=== PATIENT | female | born 1935 | race Caucasian/White ===

== ENCOUNTER 2016-05-17 14:24 | Emergency (ER) | payer MEDICARE, MEDICAID ==
[2016-05-17] MEDS ORDERED: MORPHINE 2 MG/ML SYRINGE IVP STA (15:22)
[2016-05-17] MEDS ORDERED: MORPHINE 2 MG/ML SYRINGE ONE (16:24)
== END 2016-05-17 16:46 | disposition home or self-care (01) ==
DX: K57.32 Diverticulitis of large intestine without perforation or abscess without bleeding (principal); E83.52 Hypercalcemia; K21.9 Gastro-esophageal reflux disease without esophagitis; K43.9 Ventral hernia without obstruction or gangrene; Z90.49 Acquired absence of other specified parts of digestive tract; I10 Essential (primary) hypertension; E11.9 Type 2 diabetes mellitus without complications; Z79.84 Long term (current) use of oral hypoglycemic drugs; Z86.73 Personal history of transient ischemic attack (TIA), and cerebral infarction without residual deficits; Z79.02 Long term (current) use of antithrombotics/antiplatelets

== ENCOUNTER 2016-07-01 13:05 | Outpatient (CLI) | payer MEDICARE, MEDICAID | END 2016-07-01 13:06 | disposition home or self-care (01) | DX: G47.30 Sleep apnea, unspecified (principal); G47.8 Other sleep disorders; G47.10 Hypersomnia, unspecified; R06.83 Snoring | CPT/HCPCS: 99203; G0463 ==

== ENCOUNTER 2016-07-26 21:54 | Outpatient (CLI) | payer MEDICARE, MEDICAID | END 2016-07-26 21:55 | disposition home or self-care (01) | LOC: SC 21:54 | PROVIDERS: ATTEND Internal Medicine Pulmonary Disease | DX: G47.33 Obstructive sleep apnea (adult) (pediatric) (principal); G47.61 Periodic limb movement disorder; Z68.30 Body mass index [BMI] 30.0-30.9, adult | CPT/HCPCS: 95810 ==

== ENCOUNTER 2016-08-06 13:30 | Outpatient (CLI) | payer MEDICARE, MEDICAID | END 2016-08-06 13:31 | disposition home or self-care (01) | DX: G47.33 Obstructive sleep apnea (adult) (pediatric) (principal) | CPT/HCPCS: 99213; G0463 ==

== ENCOUNTER 2016-08-20 13:48 | Emergency (ER) | payer MEDICARE, MEDICAID ==
--- NOTE | 2016-08-20 15:15 | ED Physician Documentation ---
PD HPI ABD PAIN - Stated complaint Stated Complaint: LOW ABD PX - Chief complaint Chief Complaint: Abd Pain - History obtained from History obtained from: Patient - History of Present Illness Timing - onset: Yesterday Timing - duration: Days (1-2) Timing - details: Gradual onset, Still present Quality: Cramping, Aching, Pain Location: LUQ, Suprapubic Radiation: No: Lower back, Left flank Improved by: No: Eating, BM Worsened by: No: Eating Associated symptoms: Nausea, Dysuria (frequency/urgency). No: Fever, Vomiting, Diarrhea Similar symptoms before: Diagnosis (diverticulitis once in recent past) Recently seen: Not recently seen Review of Systems Ten Systems: 10 systems reviewed and negative Constitutional: reports: Myalgias. denies: Fever, Chills Nose: denies: Rhinorrhea / runny nose, Congestion Throat: denies: Sore throat Cardiac: denies: Chest pain / pressure Respiratory: denies: Dyspnea, Cough GI: reports: Abdominal Pain, Nausea. denies: Abdominal Swelling, Vomiting, Constipation, Diarrhea : reports: Frequency, Incontinent (chronic). denies: Dysuria Skin: denies: Rash, Lesions Musculoskeletal: denies: Extremity swelling Neurologic: reports: Generalized weakness. 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 - Present Medications Home Medications: Ambulatory Orders Medication Instructions Recorded Confirmed Losartan [Cozaar] 50 mg PO ONCE 10/28/12 08/20/16 Metformin HCl 1,000 mg PO BID 10/28/12 08/20/16 Ranitidine HCl 300 mg PO BID 10/28/12 08/20/16 Simvastatin [Zocor] 10 mg PO QPM 10/28/12 08/20/16 Clopidogrel [Plavix] 75 mg PO ONCE 03/29/13 08/20/16 Cephalexin [Keflex] 500 mg PO TID #21 capsule 08/20/16 Hydrocodone/Acetaminophen [[place] 1 each PO Q6H PRN #20 tablet 08/20/16 5-325 Tablet] Ondansetron HCl [Zofran] 4 mg PO Q6H PRN #20 tablet 08/20/16 metroNIDAZOLE [Flagyl] 250 mg PO Q8H #21 tablet 08/20/16 - Allergies Allergies/Adverse Reactions: Allergies Allergy/AdvReac Type Severity Reaction Status Date / Time contrast dye Allergy Rash Uncoded 05/17/16 14:43 - Social History Does the pt smoke?: No Smoking Status: Never smoker Does the pt drink ETOH?: No Does the pt have substance abuse?: No - Family History Family history: reports: Non contributory - Immunizations Immunizations are current?: No Immunizations: TDAP >10years/unknown - POLST Patient has POLST: No PD ED PE NORMAL - Vitals Vital signs reviewed: Yes - General General: Alert and oriented X 3, No acute distress, Well developed/nourished - HEENT HEENT: Pharynx benign - Neck Neck: Supple, no meningeal sign, No adenopathy - Cardiac Cardiac: RRR, No murmur - Respiratory Respiratory: Clear bilaterally - Abdomen Abdomen: Normal bowel sounds, Soft, Non distended, No organomegaly, Other ( tender left lower abd without guarding nor rebound. Bowel sounds decreased. ) - Female Female : Deferred - Rectal Rectal: Deferred - Back Back: No CVA TTP - Derm Derm: Normal color, Warm and dry, No rash - Extremities Extremities: No tenderness to palpate, Normal ROM s pain, No calf tenderness / cord - Neuro Neuro: Alert and oriented X 3, No motor deficit, Normal speech Results - Vitals Vitals: Vital Signs - 24 hr 08/20/16 08/20/16 13:59 18:43 Temperature 36.6 C 36.8 C Heart Rate 92 70 Respiratory 18 20 Rate Blood Pressure 142/83 H 137/71 H O2 Saturation 98 100 Oxygen O2 Source Room air - Labs Labs: Laboratory Tests 08/20/16 08/20/16 08/20/16 15:14 16:10 17:01 WBC 8.9 RBC 3.72 L Hgb 11.8 L Hct 35.0 L MCV 94.3 MCH 31.8 H MCHC 33.7 RDW 12.9 Plt Count 266 MPV 7.3 L Neut # 5.8 Lymph # 1.8 [place] # 1.0 Eos # 0.2 Baso # 0.1 Absolute Nucleated RBC 0.00 Nucleated RBCs 0.0 Sodium Potassium Chloride Carbon Dioxide Anion Gap BUN Creatinine Estimated GFR (MDRD) Glucose POC Whole Bld Glucose 109 H Calcium Total Bilirubin AST ALT Alkaline Phosphatase Total Protein Albumin Globulin Albumin/Globulin Ratio Lipase Urine Color YELLOW Urine Clarity CLEAR Urine pH 7.5 Ur Specific [place] 1.010 Urine Protein NEGATIVE Urine Glucose (UA) NEGATIVE Urine Ketones NEGATIVE Urine Occult Blood NEGATIVE Urine Nitrite NEGATIVE Urine Bilirubin NEGATIVE Urine Urobilinogen 0.2 (NORMAL) Ur Leukocyte Esterase NEGATIVE Ur Microscopic Review NOT INDICATED Urine Culture Comments NOT INDICATED 08/20/16 17:01 WBC RBC Hgb Hct MCV MCH MCHC RDW Plt Count MPV Neut # Lymph # [place] # Eos # Baso # Absolute Nucleated RBC Nucleated RBCs Sodium 132 L Potassium 3.9 Chloride 100 L Carbon Dioxide 24 Anion Gap 8.0 BUN 14 Creatinine 0.9 Estimated GFR (MDRD) 60 L Glucose 146 H POC Whole Bld Glucose Calcium 10.5 H Total Bilirubin 0.6 AST 22 ALT 17 Alkaline Phosphatase 58 Total Protein 7.7 Albumin 4.4 Globulin 3.3 Albumin/Globulin Ratio 1.3 Lipase 28 Urine Color Urine Clarity Urine pH Ur Specific [place] Urine Protein Urine Glucose (UA) Urine Ketones Urine Occult Blood Urine Nitrite Urine Bilirubin Urine Urobilinogen Ur Leukocyte Esterase Ur Microscopic Review Urine Culture Comments - Rads (name of study) abd CT Radiology: Prelim report reviewed (diverticulosis, with some fat stranding and fluid left lower abd/pelvis. May represent early diverticulitis sigmoid area.), EMP read contemporaneously PD MEDICAL DECISION MAKING - ED course Complexity details: reviewed results (early diverticulitis without obvious complications. ), considered differential (likely diverticulitis, but feeling different than prior episode with some bladder symptoms. Will get scan. ), d/w patient, d/w family (daughter) Departure - Departure Disposition: 01 Home, Self Care Clinical Impression: Diverticulitis of gastrointestinal tract Abdominal pain Qualifiers: Abdominal location: lower abdomen, unspecified Qualified Code(s): R10.30 - Lower abdominal pain, unspecified Clinical Impression: (Ruled Out): Urinary tract infection Condition: Stable Record reviewed to determine appropriate education?: Yes Instructions: ED Diverticulitis Prescriptions: metroNIDAZOLE [Flagyl] 250 mg PO Q8H #21 tablet Cephalexin [Keflex] 500 mg PO TID #21 capsule Hydrocodone/Acetaminophen [[place] 5-325 Tablet] 1 each PO Q6H PRN #20 tablet PRN Reason: Pain Ondansetron HCl [Zofran] 4 mg PO Q6H PRN #20 tablet PRN Reason: Nausea / Vomiting Comments: Drink lots of fluids. Cephalexin and metronidazole as directed for infection. Zofran if needed for nausea. Hydrocodone as needed for pains. Recheck if not improved over the next few days. Discharge Date/Time: 08/20/16 18:50
[2016-08-20] MEDS ORDERED: ONDANSETRON 4 MG/2 ML VIAL IVP STA (15:44)
[2016-08-20] MEDS ORDERED: SODIUM CHLORIDE 0.9% 1,000 ML IV ONE ×2 (15:44→17:28)
[2016-08-20] MEDS ORDERED: HYDROmorphone 1 MG/ML SYRINGE IVP STA (15:44)
[2016-08-20 16:25] LABS: BILIRUBIN,URINE NEGATIVE (NEGATIVE); PH,URINE 7.5 PH (5.0-7.5); UA CHARGE (STRIP ONLY) YES; UR CULTURE IF IND NOT INDICATED
--- NOTE | 2016-08-20 17:02 | CT Preliminary Report ---
Exam: CT Abdomen/Pelvis W/O IMPRESSION: There is distal colonic diverticulosis. There is some left pelvic fat stranding and fluid. Findings m ay represent mild diverticulitis. SITE ID: [id number]
--- NOTE | 2016-08-20 17:04 | CT Report ---
EXAM: CT ABDOMEN AND PELVIS EXAM DATE: 08/20/2016 04:30 PM. CLINICAL HISTORY: Abdominal pain. COMPARISONS: 05/17/2016. TECHNIQUE: Routine axial helical CT imaging was performed through the abdomen and pelvis without IV c ontrast. Reconstructions: Coronal and sagittal. In accordance with CT protocol optimization, one or more of the following dose reduction techniques w ere utilized for this exam: automated exposure control, adjustment of mA and/or KV based on patient s ize, or use of iterative reconstructive technique. FINDINGS: Lung Bases: Unremarkable. Abdominal Organs: Noncontrast images of the abdominal organs are grossly unremarkable. Gallbladder/bile ducts: The gallbladder is surgically absent. No significant bile duct dilatation. Peritoneal Cavity: There is duodenal diverticulosis without evidence of diverticulitis. Small bowel d emonstrates no acute abnormalities. There is distal colonic diverticulosis. There is mild fat strandi ng within the posterior left pelvis. No intraperitoneal free air. No enlarged mesenteric or retroperi toneal lymph nodes. Pelvic Organs: Uterus and adnexa are unremarkable. Urinary bladder is decompressed. Vasculature: There are vascular calcifications. Other: There is a small fat-containing anterior abdominal wall hernia. IMPRESSION: There is distal colonic diverticulosis. There is some left pelvic fat stranding and fluid. Findings m ay represent mild diverticulitis. Referring Provider Line: [phone] SITE ID: [id number]
[2016-08-20 17:07] LABS: BASOPHILS # (AUTO) 0.1 10^3/uL (0.0-0.1); EOSINOPHILS # (AUTO) 0.2 10^3/uL (0.0-0.7); EOSINOPHILS % (AUTO) 2.5 %; HGB - HEMOGLOBIN 11.8 g/dL (12.0-16.0); LYMPHOCYTES # (AUTO) 1.8 10^3/uL (1.5-3.5); LYMPHOCYTES % (AUTO) 20.3 %; MEAN CORPUSCULAR HEMOGLOBIN 31.8 pg (27.0-31.0); MEAN CORPUSCULAR HGB CONC 33.7 g/dL (32.0-36.0); MEAN CORPUSCULAR VOLUME 94.3 fL (81.0-99.0); MEAN PLATELET VOLUME 7.3 fL (7.9-10.8); MONOCYTES % (AUTO) 11.4 %; NEUTROPHILS # (AUTO) 5.8 10^3/uL (1.5-6.6); NEUTROPHILS % (AUTO) 64.8 %; RED BLOOD COUNT 3.72 10^6/uL (4.20-5.40); RED CELL DISTRIBUTION WIDTH 12.9 % (12.0-15.0); UNCORRECTED WHITE BLOOD COUNT 8.9 x10^3/uL; WHITE BLOOD COUNT 8.9 x10^3/uL (4.8-10.8)
[2016-08-20 17:20] LABS: ALBUMIN/GLOBULIN RATIO 1.3 (1.0-2.2); BILIRUBIN,TOTAL 0.6 mg/dL (0.2-1.0); CALCIUM 10.5 mg/dL (8.5-10.3); CREATININE 0.9 mg/dL (0.4-1.0); POTASSIUM 3.9 mmol/L (3.5-5.0); TOTAL PROTEIN 7.7 g/dL (6.7-8.2)
[2016-08-20] MEDS ORDERED: HYDROmorphone 1 MG/ML SYRINGE ONE (17:27)
[2016-08-20] MEDS ORDERED: ONDANSETRON 4 MG/2 ML VIAL ONE (17:28)
[2016-08-20] MEDS ORDERED: cefTRIAXone 1 GM in SODIUM CHLORIDE 0.9% MINIBAG 100 ML IV STA (17:51)
[2016-08-20] MEDS ORDERED: metroNIDAZOLE 250 MG TABLET PO STA (17:51)
[2016-08-20] MEDS ORDERED: cefTRIAXone 1 GM VIAL ONE (17:56)
[2016-08-20] MEDS ORDERED: metroNIDAZOLE 250 MG TABLET PO ONE (17:56)
[2016-08-20 18:44] VITALS: BP 137/71
== END 2016-08-20 18:50 | disposition home or self-care (01) ==
LOC: ED 13:48
DX: K57.32 Diverticulitis of large intestine without perforation or abscess without bleeding (principal); I10 Essential (primary) hypertension; E78.00 Pure hypercholesterolemia, unspecified; E11.9 Type 2 diabetes mellitus without complications; Z79.84 Long term (current) use of oral hypoglycemic drugs; K21.9 Gastro-esophageal reflux disease without esophagitis; M19.90 Unspecified osteoarthritis, unspecified site; Z86.73 Personal history of transient ischemic attack (TIA), and cerebral infarction without residual deficits
CPT/HCPCS: 36415; 51701; 74176; 80053; 81003; 83690; 85025; 96374; 96375; 99283; 99284; A9270; J1170; 81001; 87086

== ENCOUNTER 2016-09-10 12:41 | Emergency (ER) | payer MEDICARE, MEDICAID ==
[2016-09-10 12:52] VITALS: BP 160/88
--- NOTE | 2016-09-10 15:53 | ED Physician Documentation ---
PD HPI OPHTHO - Stated complaint Stated Complaint: BILAT EYE SWELLING - Chief complaint Chief Complaint: Heent - History obtained from History obtained from: Patient, Family (daughter) - History of Present Illness Timing - onset: Other (A few days worth of periorbital swelling bilaterally associated with rhinorrhea but no visual deficit. She gets this about every year. Benadryl has helped in the past. 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 - Present Medications Home Medications: Ambulatory Orders Medication Instructions Recorded Confirmed Losartan [Cozaar] 50 mg PO ONCE 10/28/12 09/10/16 Metformin HCl 1,000 mg PO BID 10/28/12 09/10/16 Ranitidine HCl 300 mg PO BID 10/28/12 09/10/16 Simvastatin [Zocor] 10 mg PO QPM 10/28/12 09/10/16 Clopidogrel [Plavix] 75 mg PO ONCE 03/29/13 09/10/16 metroNIDAZOLE [Flagyl] 250 mg PO Q8H #21 tablet 08/20/16 09/10/16 Fexofenadine HCl [Rachel Allergy] 180 mg PO DAILY #30 tablet 09/10/16 - Allergies Allergies/Adverse Reactions: Allergies Allergy/AdvReac Type Severity Reaction Status Date / Time contrast dye Allergy Rash Uncoded 09/10/16 12:47 - Social History Does the pt smoke?: No Smoking Status: Never smoker Does the pt drink ETOH?: No Does the pt have substance abuse?: No - Immunizations Immunizations are current?: No Immunizations: TDAP >10years/unknown - POLST Patient has POLST: No PD ED PE NORMAL - Vitals Vital signs reviewed: Yes - General General: Alert and oriented X 3, No acute distress - HEENT HEENT: PERRL, EOMI, Other (Bilateral periorbital angioedema and mild conjunctivitis consistent with allergic conjunctivitis.) - Neck Neck: Supple, no meningeal sign, No bony TTP - Extremities Extremities: No edema - Neuro Neuro: Alert and oriented X 3, Normal speech - Psych Psych: Normal mood, Normal affect Results - Vitals Vitals: Vital Signs - 24 hr 09/10/16 12:44 Temperature 36.8 C Heart Rate 95 Respiratory 18 Rate Blood Pressure 160/88 H O2 Saturation 99 Oxygen O2 Source Room air PD MEDICAL DECISION MAKING - ED course ED course: The patient and family were counseled as to the diagnosis and need for followup. I counseled the patient with regard to signs and symptoms that would necessitate an urgent reevaluation in the emergency department. They understand they are welcome to return at any time if worse or if not improving as expected. This document was made in part using voice recognition software. While efforts are made to proofread this document, sound alike and grammatical errors may occur. Departure - Departure Disposition: 01 Home, Self Care Clinical Impression: Allergic conjunctivitis Qualifiers: Laterality: bilateral Qualified Code(s): H10.13 - Acute atopic conjunctivitis, bilateral Condition: Good Record reviewed to determine appropriate education?: Yes Instructions: ED Allergy Seasonal Prescriptions: Fexofenadine HCl [Rachel Allergy] 180 mg PO DAILY #30 tablet Comments: Call your doctor to arrange a follow up appointment. Make the next available appointment. In the interim return anytime if worse or if new symptoms develop. Your blood pressure was elevated today on check in to the emergency department. This does not mean that you have hypertension, it is a common phenomenon to check into the emergency department and have elevated blood pressure. I recommend that you see your primary care physician within the week to have it rechecked when you're feeling better.
== END 2016-09-10 16:01 | disposition home or self-care (01) ==
LOC: ED 12:41
DX: H10.13 Acute atopic conjunctivitis, bilateral (principal); I10 Essential (primary) hypertension; E78.00 Pure hypercholesterolemia, unspecified; E11.9 Type 2 diabetes mellitus without complications; K21.9 Gastro-esophageal reflux disease without esophagitis; Z86.73 Personal history of transient ischemic attack (TIA), and cerebral infarction without residual deficits
CPT/HCPCS: 99282; 99283

== ENCOUNTER 2016-09-16 13:13 | Outpatient (CLI) | payer MEDICARE, MEDICAID | END 2016-09-16 13:14 | disposition home or self-care (01) | LOC: SC 13:13 | PROVIDERS: ATTEND Internal Medicine Pulmonary Disease | DX: G47.33 Obstructive sleep apnea (adult) (pediatric) (principal) | CPT/HCPCS: 99213; G0463; 99212 ==

== ENCOUNTER 2016-10-11 20:33 | Emergency (ER) | payer MEDICARE, MEDICAID ==
[2016-10-11] MEDS ORDERED: SODIUM CHLORIDE 0.9% 1,000 ML IV ONE (20:53)
[2016-10-11] MEDS ORDERED: diltiaZEM INJ 5 MG/ML VIAL IVP STA ×2 (20:54→22:13)
--- NOTE | 2016-10-11 20:57 | ED Physician Documentation ---
PD HPI CHEST PAIN - Stated complaint Stated Complaint: CHEST PX - Chief complaint Chief Complaint: Cardiac - History obtained from History obtained from: Patient, Family - History of Present Illness Timing - onset: Enter time (1700), Today Timing - onset during: Light activity Timing - duration: Hours Timing - details: Abrupt onset, Still present Pain level max: 8 Pain level now: 6 Quality: Pressure, Aching Location: Substernal, Epigastric Improved by: Rest Worsened by: Exertion Associated symptoms: Shortness of air. No: Nausea, Vomiting, Feeling faint / dizzy Similar symptoms before: Has not had sx before Recently seen: Emergency Dept (last month for seasonal allergies) - Additional information Additional information: 81-year-old female with history of type 2 diabetes and hypertension was preparing for a yard sale today doing a lot of of pressing of clothes and moving things around when at about 5 PM she developed some chest pressure in the substernal area and a feeling of palpitations. She does not have radiation of the pain she has not had this feeling previously. She feels somewhat short of breath with exertion. She did not have syncope or lightheadedness. She has noted that she has some urinary incontinence which is normal for her and she feels that she has some additional urinary urgency. Review of Systems Constitutional: denies: Fever, Chills, Myalgias, Fatigue Eyes: denies: Decreased vision Ears: denies: Ear pain Nose: reports: Rhinorrhea / runny nose, Congestion Throat: denies: Dental pain / toothache, Sore throat Cardiac: reports: Chest pain / pressure, Palpitations. denies: Pedal edema, Calf pain Respiratory: reports: Dyspnea, Cough (usual dry cough) GI: denies: Abdominal Pain, Nausea, Vomiting, Constipation, Diarrhea : reports: Frequency, Incontinent. 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 - Present Medications Home Medications: Ambulatory Orders Medication Instructions Recorded Confirmed Losartan [Cozaar] 50 mg PO ONCE 10/28/12 09/10/16 Metformin HCl 1,000 mg PO BID 10/28/12 09/10/16 Ranitidine HCl 300 mg PO BID 10/28/12 09/10/16 Simvastatin [Zocor] 10 mg PO QPM 10/28/12 09/10/16 Clopidogrel [Plavix] 75 mg PO ONCE 03/29/13 09/10/16 metroNIDAZOLE [Flagyl] 250 mg PO Q8H #21 tablet 08/20/16 09/10/16 Fexofenadine HCl [Rachel Allergy] 180 mg PO DAILY 09/10/16 09/10/16 - Allergies Allergies/Adverse Reactions: Allergies Allergy/AdvReac Type Severity Reaction Status Date / Time contrast dye Allergy Rash Uncoded 10/11/16 20:45 - Social History Does the pt smoke?: No Smoking Status: Never smoker Does the pt drink ETOH?: No Does the pt have substance abuse?: No - Immunizations Immunizations are current?: No Immunizations: TDAP >10years/unknown - POLST Patient has POLST: No PD ED PE NORMAL - Vitals Vital signs reviewed: Yes (hypertensive and tachycardic. ) - General General: No acute distress, Well developed/nourished - HEENT HEENT: Atraumatic, PERRL, EOMI, Other (There is no significant swelling to the periorbital tissues. ) - Neck Neck: Supple, no meningeal sign - Cardiac Cardiac: Other (irregularlly irregular with 2/6 holosystolic murmer at LSB) - Respiratory Respiratory: No respiratory distress, Other (crackles at bases bilateral worse on left. ) - Abdomen Abdomen: Soft, Non tender - Back Back: No CVA TTP, No spinal TTP - Derm Derm: Normal color, Warm and dry, No rash - Extremities Extremities: No deformity, No edema - Neuro Neuro: No motor deficit, No sensory deficit Results - Vitals Vitals: Vital Signs - 24 hr 10/11/16 10/11/16 10/11/16 20:42 21:18 22:19 Temperature 36.6 C Heart Rate 105 H 87 105 H Respiratory 7 L 18 18 Rate Blood Pressure 146/98 H 105/71 138/75 H O2 Saturation 97 96 97 10/11/16 10/12/16 10/12/16 23:07 00:15 02:27 Temperature Heart Rate 66 93 62 Respiratory 16 17 16 Rate Blood Pressure 112/65 116/73 125/75 O2 Saturation 98 100 99 10/12/16 04:12 Temperature Heart Rate 60 Respiratory 16 Rate Blood Pressure 130/70 O2 Saturation 100 Oxygen O2 Source Room air Oxygen Flow Rate 2 - EKG (time done) 2039 Rate: Rate (enter#) (128) Rhythm: Atrial fibrillation QRS: LVH, Poor R wave progression Compare to prior EKG: Old EKG unavailable Computer interpretation: Agree with computer - Labs Labs: Laboratory Tests 10/11/16 10/11/16 10/11/16 20:58 20:58 20:58 WBC 7.4 RBC 3.95 L Hgb 12.6 Hct 38.0 MCV 96.0 MCH 31.9 H MCHC 33.2 RDW 12.8 Plt Count 315 MPV 7.3 L Neut # 4.1 Lymph # 2.0 [place] # 0.8 Eos # 0.4 Baso # 0.1 Absolute Nucleated RBC 0.00 Nucleated RBCs 0.0 Sodium 133 L Potassium 4.0 Chloride 104 Carbon Dioxide 20 L Anion Gap 9.0 BUN 16 Creatinine 1.0 Estimated GFR (MDRD) 53 L Glucose 133 H Calcium 10.4 H Total Bilirubin 0.3 AST 29 ALT 19 Alkaline Phosphatase 61 Troponin I 0.04 Total Protein 7.9 Albumin 4.7 Globulin 3.2 Albumin/Globulin Ratio 1.5 Lipase 28 Urine Color Urine Clarity Urine pH Ur Specific [place] Urine Protein Urine Glucose (UA) Urine Ketones Urine Occult Blood Urine Nitrite Urine Bilirubin Urine Urobilinogen Ur Leukocyte Esterase Ur Microscopic Review Urine Culture Comments 10/11/16 10/11/16 21:42 23:40 WBC RBC Hgb Hct MCV MCH MCHC RDW Plt Count MPV Neut # Lymph # [place] # Eos # Baso # Absolute Nucleated RBC Nucleated RBCs Sodium Potassium Chloride Carbon Dioxide Anion Gap BUN Creatinine Estimated GFR (MDRD) Glucose Calcium Total Bilirubin AST ALT Alkaline Phosphatase Troponin I 0.16 Total Protein Albumin Globulin Albumin/Globulin Ratio Lipase Urine Color YELLOW Urine Clarity CLEAR Urine pH 7.0 Ur Specific [place] <=1.005 Urine Protein NEGATIVE Urine Glucose (UA) NEGATIVE Urine Ketones NEGATIVE Urine Occult Blood NEGATIVE Urine Nitrite NEGATIVE Urine Bilirubin NEGATIVE Urine Urobilinogen 0.2 (NORMAL) Ur Leukocyte Esterase NEGATIVE Ur Microscopic Review NOT INDICATED Urine Culture Comments NOT INDICATED - Rads (name of study) 2 view chest Radiology: Prelim report reviewed (Impression: Mild cardiomegaly.), EMP read indepedently, See rad report Procedures - IVC sono (time) 2049 Bedside IVC sono: IVC measures (cm) (0.99), IVC collapsed c insp (cm) (complete) , Dehydration PD MEDICAL DECISION MAKING - ED course Complexity details: reviewed old records, reviewed results, re-evaluated patient , considered differential, d/w patient, d/w family ED course: 81-year-old female developed exertional chest pain and dyspnea today while working on a yard sale. She arrived to the hospital with atrial fibrillation with rapid ventricular response she received 10 mg of diltiazem lowering her rate to 100 and a second dose of 20 mg lowering her rate to the 80s and 90s. She continued to have atrial fibrillation. Her initial troponin was 0.04 and a repeat was 0.16. In consultation with our hospitalist here Dr. Gallagher we do not have services here to help this patient. Dr. Nava cardiology at [facility] graciously accepts the patient in transfer. She is given aspirin and a dose of Lovenox prior to transfer. [facility] was very busy and patient's are waiting to be seen the team there asked us to hold on to the patient until about 5am. She converted at some point while waiting. :) Departure - Departure Disposition: 02 Transfer Acute Care Hosp Clinical Impression: Atrial fibrillation with rapid ventricular response, Angina of effort Condition: Stable
[2016-10-11 21:03] LABS: BASOPHILS # (AUTO) 0.1 10^3/uL (0.0-0.1); BASOPHILS % (AUTO) 0.9 %; EOSINOPHILS # (AUTO) 0.4 10^3/uL (0.0-0.7); HGB - HEMOGLOBIN 12.6 g/dL (12.0-16.0); MEAN CORPUSCULAR HEMOGLOBIN 31.9 pg (27.0-31.0); MEAN CORPUSCULAR HGB CONC 33.2 g/dL (32.0-36.0); MEAN PLATELET VOLUME 7.3 fL (7.9-10.8); MONOCYTES # (AUTO) 0.8 10^3/uL (0.0-1.0); MONOCYTES % (AUTO) 11.2 %; NEUTROPHILS # (AUTO) 4.1 10^3/uL (1.5-6.6); NEUTROPHILS % (AUTO) 55.9 %; RED BLOOD COUNT 3.95 10^6/uL (4.20-5.40); RED CELL DISTRIBUTION WIDTH 12.8 % (12.0-15.0); UNCORRECTED WHITE BLOOD COUNT 7.4 x10^3/uL; WHITE BLOOD COUNT 7.4 x10^3/uL (4.8-10.8)
[2016-10-11] MEDS ORDERED: diltiaZEM INJ 5 MG/ML VIAL ONE ×2 (21:03→22:15)
[2016-10-11 21:15] LABS: ALBUMIN/GLOBULIN RATIO 1.5 (1.0-2.2); BILIRUBIN,TOTAL 0.3 mg/dL (0.2-1.0); CALCIUM 10.4 mg/dL (8.5-10.3); TOTAL PROTEIN 7.9 g/dL (6.7-8.2)
[2016-10-11 21:49] LABS: BILIRUBIN,URINE NEGATIVE (NEGATIVE)
--- NOTE | 2016-10-11 21:51 | XRAY Preliminary Report ---
Exam: XR Chest 2 View PA/LAT IMPRESSION: Mild cardiomegaly. [facility] SITE ID: [id number]
[2016-10-11 21:54] LABS: UA CHARGE (STRIP ONLY) YES; UR CULTURE IF IND NOT INDICATED
--- NOTE | 2016-10-11 22:04 | XRAY Report ---
EXAM: CHEST RADIOGRAPHY EXAM DATE: 10/11/2016 09:35 PM. CLINICAL HISTORY: Chest pain. COMPARISON: 03/29/2013. TECHNIQUE: 2 views. FINDINGS: Lungs/Pleura: No focal opacities evident. No pleural effusion. No pneumothorax. Normal volumes. Mediastinum: New mild cardiomegaly. No adenopathy. Other: Cholecystectomy. IMPRESSION: Mild cardiomegaly. [facility] Referring Provider Line: [phone] SITE ID: [id number]
[2016-10-12] MEDS ORDERED: ASPIRIN CHEW 81 MG TABLET PO STA (00:47)
[2016-10-12] MEDS ORDERED: ENOXAPARIN 80 MG/0.8 ML SYRINGE SUBQ STA (00:48)
[2016-10-12] MEDS ORDERED: ASPIRIN CHEW 81 MG TABLET ONE (01:32)
[2016-10-12] MEDS ORDERED: ENOXAPARIN 80 MG/0.8 ML SYRINGE SUBQ ONE (01:32)
[2016-10-12 04:39] VITALS: BP 113/66
== END 2016-10-12 04:40 | disposition short-term general hospital (02) ==
LOC: ED 20:33
DX: I48.91 Unspecified atrial fibrillation (principal); I20.9 Angina pectoris, unspecified; I10 Essential (primary) hypertension; E11.9 Type 2 diabetes mellitus without complications; Z79.84 Long term (current) use of oral hypoglycemic drugs; E78.00 Pure hypercholesterolemia, unspecified; K21.9 Gastro-esophageal reflux disease without esophagitis; M19.90 Unspecified osteoarthritis, unspecified site; Z86.73 Personal history of transient ischemic attack (TIA), and cerebral infarction without residual deficits
CPT/HCPCS: 36415; 71020; 80053; 81003; 83690; 84484; 85025; 93005; 96361; 96372; 96374; 96376; 99285; A9270; J1650; 81001; 87086; 99284

== ENCOUNTER 2016-10-12 04:44 | Outpatient (CLI) | payer MEDICARE, MEDICAID | END 2016-10-12 04:45 | disposition short-term general hospital (02) | LOC: EMS 04:44 | PROVIDERS: ATTEND Surgery | DX: R07.9 Chest pain, unspecified (principal) | CPT/HCPCS: A0425; A0426 ==

== ENCOUNTER 2017-06-02 20:07 | Emergency (ER) | payer MEDICARE, MEDICAID ==
--- NOTE | 2017-06-02 21:37 | ED Physician Documentation ---
PD HPI HEAD INJURY - Stated complaint Stated Complaint: HEAD INJURY - Chief complaint Chief Complaint: Trauma Hd/Nk - History obtained from History obtained from: Patient - History of Present Illness Mechanism of head injury: Fell (she slipped and fell downward onto buttock/ sacrum area and then backward striking back of head.) Where head injury occurred: Home Timing - onset: Today Location of injury: Back Quality of pain: Pain Associated symptoms: No: LOC, AMS, Nausea / vomiting Contributing factors: Anticoagulated Similar symptoms before: Has not had sx before Recently seen: Not recently seen Review of Systems Constitutional: denies: Fever Nose: denies: Rhinorrhea / runny nose, Congestion Throat: denies: Sore throat Respiratory: denies: Cough GI: denies: Abdominal Pain, Nausea, Vomiting, Bloody / black stool Skin: denies: Abrasion (s), Laceration (s) Musculoskeletal: reports: Back pain (sacral area). denies: Neck pain Neurologic: reports: Headache, Head injury. 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 - Present Medications Home Medications: Ambulatory Orders Medication Instructions Recorded Confirmed Losartan [Cozaar] 50 mg PO ONCE 10/28/12 06/02/17 Metformin HCl 1,000 mg PO BID 10/28/12 06/02/17 Ranitidine HCl 300 mg PO BID 10/28/12 06/02/17 Simvastatin [Zocor] 10 mg PO QPM 10/28/12 06/02/17 Clopidogrel [Plavix] 75 mg PO ONCE 03/29/13 06/02/17 Metoprolol Succinate [Toprol Xl] 25 mg PO 06/02/17 - Allergies Allergies/Adverse Reactions: Allergies Allergy/AdvReac Type Severity Reaction Status Date / Time contrast dye Allergy Rash Uncoded 06/02/17 20:22 - Social History Does the pt smoke?: No Smoking Status: Never smoker Does the pt drink ETOH?: No Does the pt have substance abuse?: No - Immunizations Immunizations are current?: No Immunizations: TDAP >10years/unknown - POLST Patient has POLST: No PD ED PE NORMAL - Vitals Vital signs reviewed: Yes - General General: Alert and oriented X 3, No acute distress, Well developed/nourished - HEENT HEENT: PERRL, EOMI, Pharynx benign. No: Atraumatic (back of head with local swelling and tenderness. ) - Neck Neck: Supple, no meningeal sign, No bony TTP, No adenopathy - Cardiac Cardiac: RRR, No murmur - Respiratory Respiratory: Clear bilaterally - Abdomen Abdomen: Soft, Non tender - Back Back: No spinal TTP (but is tender in lower sacral/coccygeal area. ) - Derm Derm: Normal color, Warm and dry - Extremities Extremities: No tenderness to palpate, Normal ROM s pain - Neuro Neuro: Alert and oriented X 3, No motor deficit, Normal speech Eye Opening: Spontaneous Motor: Obeys Commands Verbal: Oriented GCS Score: 15 Results - Vitals Vitals: Oxygen O2 Source Room air - Rads (name of study) pelvic CT Radiology: Prelim report reviewed (no fractures) head CT Radiology: Prelim report reviewed (no bleeding nor fractures) PD MEDICAL DECISION MAKING - ED course Complexity details: reviewed results (CT head and pelvis without fractures. ), considered differential, d/w patient Departure - Departure Disposition: 01 Home, Self Care Clinical Impression: Accidental fall Qualifiers: Encounter type: initial encounter Qualified Code(s): W19.XXXA - Unspecified fall, initial encounter Head contusion Qualifiers: Encounter type: initial encounter Contusion of head detail: scalp Qualified Code(s): S00.03XA - Contusion of scalp, initial encounter Sacral contusion Qualifiers: Encounter type: initial encounter Qualified Code(s): S30.0XXA - Contusion of lower back and pelvis, initial encounter Condition: Stable Record reviewed to determine appropriate education?: Yes Instructions: ED Contusion Scalp Follow-Up: Medina Ramirez ARNP [Primary Care Provider] - Comments: Drink lots of fluids. Use Tylenol if needed for pains. Add the hydrocodone every 4-6 hours if needed. I would not anticipate needing it more than a day or two. Recheck if head or lower back pain persists beyond several days. Discharge Date/Time: 06/02/17 23:02
[2017-06-02] MEDS ORDERED: traMADol 50 MG TABLET PO STA (21:43)
[2017-06-02] MEDS ORDERED: ACETAMINOPHEN 325 MG TABLET PO STA (21:43)
[2017-06-02 22:22] VITALS: BP 171/62
--- NOTE | 2017-06-02 22:36 | CT Preliminary Report ---
Exam: CT HEAD W/O IMPRESSION: No acute intracranial process. [facility] SITE ID: [id number]
--- NOTE | 2017-06-02 22:36 | CT Preliminary Report ---
Exam: CT PELVIS W/O IMPRESSION: No acute osseous abnormality demonstrated. However, bones are osteopenic. This reduces e xam sensitivity and specificity for detection of subtle bony lesions and/or fractures. If the patien t is unable to bear weight, further assessment could be considered with MRI. [facility] SITE ID: [id number]
--- NOTE | 2017-06-02 22:37 | CT Report ---
EXAM: CT HEAD EXAM DATE: 06/02/2017 10:11 PM. CLINICAL HISTORY: Fall with struck back of head. COMPARISON: None. TECHNIQUE: Multiaxial CT images were obtained from the foramen magnum to the vertex. Reformats: Coron al. IV contrast: None. In accordance with CT protocol optimization, one or more of the following dose reduction techniques w ere utilized for this exam: automated exposure control, adjustment of mA and/or KV based on patient s ize, or use of iterative reconstructive technique. FINDINGS: Parenchyma: No intraparenchymal hemorrhage. No evidence of mass, midline shift, or CT findings of inf arction. There is of low-density involving white matter of the cerebral hemispheres. Brownlee-white diffe rentiation is distinct. Extraaxial Spaces: There is mild diffuse prominence of sulci. No subdural or epidural collections leonardo ntified. Ventricles: There is mild enlargement of lateral ventricles. No mass effect. No midline shift. Sinuses and Orbits: Imaged paranasal sinuses, orbits, and mastoids show no significant abnormality. Bones: No evidence of fracture or calvarial defect. Other: There is a moderate size right parietal scalp hematoma.. There are prominent vascular calcific ations. IMPRESSION: No acute intracranial process. [facility] Referring Provider Line: [phone] SITE ID: [id number]
--- NOTE | 2017-06-02 22:37 | CT Report ---
EXAM: CT BONY PELVIS WITHOUT CONTRAST EXAM DATE: 06/02/2017 10:12 PM. CLINICAL HISTORY: Fall with pain in the sacral area. COMPARISON: None. TECHNIQUE: Thin-section axial images were acquired of the pelvis without contrast. Post-processing: C oronal and sagittal reformats. Other: None. In accordance with CT protocol optimization, one or more of the following dose reduction techniques w ere utilized for this exam: automated exposure control, adjustment of mA and/or KV based on patient s ize, or use of iterative reconstructive technique. FINDINGS: Bones: No acute displaced fractures or suspicious bony lesion. However, bones are osteopenic. This r educes exam sensitivity and specificity for detection of subtle bony lesions and/or fractures. Joints: No dislocation. Soft Tissues: Postmenopausal appearance of the uterus and ovaries. No abnormal dilated bowel loops. N o definite pathologic lymphadenopathy or free fluid. There is distal abdominal aortic atherosclerosis . Severe sigmoid diverticulosis without evidence of diverticulitis. There is a small fat containing l eft paraumbilical hernia. IMPRESSION: No acute osseous abnormality demonstrated. However, bones are osteopenic. This reduces ex am sensitivity and specificity for detection of subtle bony lesions and/or fractures. If the patient is unable to bear weight, further assessment could be considered with MRI. [facility] Referring Provider Line: [phone] SITE ID: [id number]
[2017-06-02] MEDS ORDERED: HYDROcod/ACET 5/325 Prepack 6 PO STA (22:52)
== END 2017-06-02 23:02 | disposition home or self-care (01) ==
LOC: ED 20:07
DX: S00.03XA Contusion of scalp, initial encounter (principal); S30.0XXA Contusion of lower back and pelvis, initial encounter; W01.0XXA Fall on same level from slipping, tripping and stumbling without subsequent striking against object, initial encounter; Y92.009 Unspecified place in unspecified non-institutional (private) residence as the place of occurrence of the external cause; I10 Essential (primary) hypertension; E78.00 Pure hypercholesterolemia, unspecified; E11.9 Type 2 diabetes mellitus without complications; Z79.84 Long term (current) use of oral hypoglycemic drugs; K21.9 Gastro-esophageal reflux disease without esophagitis; M19.90 Unspecified osteoarthritis, unspecified site; Z86.73 Personal history of transient ischemic attack (TIA), and cerebral infarction without residual deficits; Z79.02 Long term (current) use of antithrombotics/antiplatelets
CPT/HCPCS: 70450; 72192; 99283; 99284; A9270

== ENCOUNTER 2017-07-30 10:49 | Outpatient (CLI) | payer MEDICARE, MEDICAID | END 2017-07-30 10:50 | disposition home or self-care (01) | LOC: LAB.N 10:49 | PROVIDERS: ATTEND Nurse Practitioner Gerontology | DX: E83.52 Hypercalcemia (principal) | CPT/HCPCS: 36415; 82310 ==

== ENCOUNTER 2018-11-19 19:58 | Emergency (ER) | payer MEDICARE, MEDICAID ==
[2018-11-19 21:32] LABS: BASOPHILS # (AUTO) 0.1 10^3/uL (0.0-0.1); BASOPHILS % (AUTO) 0.7 %; EOSINOPHILS # (AUTO) 0.2 10^3/uL (0.0-0.7); EOSINOPHILS % (AUTO) 2.8 %; HGB - HEMOGLOBIN 11.4 g/dL (12.0-16.0); LYMPHOCYTES # (AUTO) 2.8 10^3/uL (1.5-3.5); LYMPHOCYTES % (AUTO) 36.7 %; MEAN CORPUSCULAR HEMOGLOBIN 30.7 pg (27.0-31.0); MEAN CORPUSCULAR HGB CONC 31.8 g/dL (32.0-36.0); MEAN CORPUSCULAR VOLUME 96.8 fL (81.0-99.0); MONOCYTES # (AUTO) 0.8 10^3/uL (0.0-1.0); MONOCYTES % (AUTO) 10.5 %; NEUTROPHILS # (AUTO) 3.7 10^3/uL (1.5-6.6); PLT - PLATELET COUNT 386 10^3/uL (130-450); RED BLOOD COUNT 3.71 10^6/uL (4.20-5.40); RED CELL DISTRIBUTION WIDTH 13.2 % (12.0-15.0); WHITE BLOOD COUNT 7.5 x10^3/uL (4.8-10.8)
--- NOTE | 2018-11-19 21:32 | ED Physician Documentation ---
PD HPI ABD PAIN - Stated complaint Stated Complaint: AB PX - Chief complaint Chief Complaint: Abd Pain - History obtained from History obtained from: Patient - History of Present Illness Timing - onset: How many days ago (3) Timing - details: Gradual onset, Constant Pain level now: 4 Quality: Pain Location: All over / everywhere Radiation: Other (no radiation) Improved by: Laying still Worsened by: Moving, Palpation Associated symptoms: No: Fever, Nausea, Vomiting, Diarrhea, Constipation Similar symptoms before: Diagnosis (similar to previous episodes of diverticulitis, although this episode is more diffuse than previous) Review of Systems Constitutional: denies: Fever, Chills, Sweats Cardiac: reports: Reviewed and negative Respiratory: reports: Reviewed and negative GI: reports: Abdominal Pain. 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 - Present Medications Home Medications: Ambulatory Orders Medication Instructions Recorded Confirmed Losartan [Cozaar] 50 mg PO ONCE 10/28/12 06/02/17 Metformin HCl 1,000 mg PO BID 10/28/12 06/02/17 Ranitidine HCl 300 mg PO BID 10/28/12 06/02/17 Simvastatin [Zocor] 10 mg PO QPM 10/28/12 06/02/17 Clopidogrel [Plavix] 75 mg PO ONCE 03/29/13 06/02/17 Metoprolol Succinate [Toprol Xl] 25 mg PO 06/02/17 Amox/Clav 875/125 [Augmentin] 1 each PO Q8HR #20 tablet 11/19/18 - Allergies Allergies/Adverse Reactions: Allergies Allergy/AdvReac Type Severity Reaction Status Date / Time contrast dye Allergy Rash Uncoded 06/02/17 20:22 - Social History Does the pt smoke?: No Smoking Status: Never smoker Does the pt drink ETOH?: No Does the pt have substance abuse?: No - Immunizations Immunizations are current?: No Immunizations: TDAP >10years/unknown - POLST Patient has POLST: No PD ED PE NORMAL - Vitals Vital signs reviewed: Yes - General General: Alert and oriented X 3, No acute distress, Well developed/nourished - HEENT HEENT: Moist mucous membranes - Neck Neck: Supple, no meningeal sign - Cardiac Cardiac: RRR - Respiratory Respiratory: No respiratory distress, Clear bilaterally - Abdomen Abdomen: Soft, Non distended, Other (mild/moderate tenderness LLQ and periumbilicus without rebound or guarding) - Derm Derm: Normal color, Warm and dry Results - Vitals Vitals: Vital Signs - 24 hr 11/19/18 11/19/18 11/19/18 20:06 22:08 23:38 Temperature 36 C L 36.4 C L Heart Rate 69 88 79 Respiratory 20 14 16 Rate Blood Pressure 170/103 H 120/68 177/86 H O2 Saturation 98 92 97 Oxygen O2 Source Room air - Labs Labs: Laboratory Tests 11/19/18 11/19/18 21:14 21:14 WBC 7.5 RBC 3.71 L Hgb 11.4 L Hct 35.9 L MCV 96.8 MCH 30.7 MCHC 31.8 L RDW 13.2 Plt Count 386 MPV 9.0 Neut # (Auto) 3.7 Lymph # (Auto) 2.8 [place] # (Auto) 0.8 Eos # (Auto) 0.2 Baso # (Auto) 0.1 Absolute Nucleated RBC 0.00 Nucleated RBC % 0.0 Sodium 140 Potassium 4.0 Chloride 101 Carbon Dioxide 23 Anion Gap 16.0 H BUN 27 H Creatinine 1.1 H Estimated GFR (MDRD) 47 L Glucose 148 H Calcium 10.0 Total Bilirubin 0.6 AST 22 ALT 12 Alkaline Phosphatase 65 Total Protein 9.2 H Albumin 4.5 Globulin 4.7 H Albumin/Globulin Ratio 1.0 Lipase 37 - Rads (name of study) CT A/P Radiology: Prelim report reviewed, See rad report PD MEDICAL DECISION MAKING - ED course Complexity details: reviewed old records, reviewed results, re-evaluated patient, considered differential, d/w patient Departure - Departure Disposition: 01 Home, Self Care Clinical Impression: Diverticulitis of gastrointestinal tract Condition: Good Instructions: ED Diverticulitis, ED Diverticulosis Follow-Up: Medina Ramirez ARNP [Primary Care Provider] - Prescriptions: Amox/Clav 875/125 [Augmentin] 1 each PO Q8HR #20 tablet Discharge Date/Time: 11/19/18 23:43
[2018-11-19 21:45] LABS: ALBUMIN 4.5 g/dL (3.2-5.5); BILIRUBIN,TOTAL 0.6 mg/dL (0.2-1.0); CREATININE 1.1 mg/dL (0.4-1.0); TOTAL PROTEIN 9.2 g/dL (6.7-8.2)
--- NOTE | 2018-11-19 22:48 | CT Report ---
Reason: abd. pain Procedure Date: 11/19/2018 Accession Number: [id number] / [id number] Procedure: CT - Abdomen/Pelvis WO CPT Code: FULL RESULT: EXAM: CT ABDOMEN AND PELVIS (CT KUB) EXAM DATE: 11/19/2018 10:19 PM. CLINICAL HISTORY: Abdominal pain COMPARISONS: ABDOMEN/PELVIS W/O 08/20/2016 4:27 PM. TECHNIQUE: Routine axial helical CT imaging was performed through the abdomen and pelvis without IV contrast. Reconstructions: Coronal and sagittal. In accordance with CT protocol optimization, one or more of the following dose reduction techniques were utilized for this exam: automated exposure control, adjustment of mA and/or KV based on patient size, or use of iterative reconstructive technique. FINDINGS: The lack of intravenous contrast limits evaluation of the solid organs and vascular structures. Imaged chest: The heart is normal in size. There are mitral annular calcifications and coronary artery disease. Mild atherosclerosis of the thoracic aorta. Liver: Unremarkable Gallbladder: Cholecystectomy Biliary: Unremarkable. Pancreas: Unremarkable Spleen: Unremarkable Adrenal glands: Unremarkable Kidneys: Unremarkable Urinary bladder: Decompressed and not well evaluated. Reproductive organs: Calcified and atrophic uterus. No obvious adnexal lesions. Bowel: Advanced sigmoid and descending colonic diverticulosis. Mild fat stranding surrounds the sigmoid colon. No free fluid. No extra luminal gas. There is a unchanged large duodenal diverticulum. Appendix: The appendix is not reliably identified, however, there are no secondary signs of acute appendicitis. Stomach: Unremarkable Aorta: Normal in caliber with severe atherosclerosis. Lymph nodes: Unremarkable. Sidewalls: Mild peripheral arterial disease in the imaged thighs. Small fat-containing umbilical hernia. Bones: The bones are osteopenic. No suspicious osseous lesions. New age-indeterminate 2 column burst fracture of the T12 vertebral body with approximately 25% anterior vertebral body height loss and minimal retropulsion of fracture fragments. There are multilevel degenerative change of the spine with grade 1 anterolisthesis L4 and L5. IMPRESSION: 1. Sigmoid diverticulosis with adjacent mild fat stranding. Correlate clinically for mild diverticulitis. No evidence of perforation or abscess formation. 2. The bones are osteopenic. New age-indeterminate 2 column burst fracture of the T12 vertebral body with approximately 25% anterior vertebral body height loss and minimal retropulsion of fracture fragments. Recommend correlation with point tenderness. 3. Cholecystectomy. 4. Other chronic findings detailed above. [facility]
[2018-11-19] MEDS ORDERED: AMOX/CLAV 875 MG/125 MG TABLET PO STA (23:32)
[2018-11-19 23:39] VITALS: BP 177/86
--- NOTE | 2018-11-20 15:12 | ED Physician Documentation ---
ED Addendum - Addendum Addendum: 11/20/18 15:11 Took call from pharmacist. He says that he is refusing to fill Augmentin 3 times a day. I reviewed up to date, Dr. Baeza did write for the appropriate dose. I authorized twice daily since he refused to fill it 3 times daily.
== END 2018-11-19 23:43 | disposition home or self-care (01) ==
LOC: ED 19:58
DX: K57.32 Diverticulitis of large intestine without perforation or abscess without bleeding (principal); K21.9 Gastro-esophageal reflux disease without esophagitis; I10 Essential (primary) hypertension; E11.9 Type 2 diabetes mellitus without complications; Z79.84 Long term (current) use of oral hypoglycemic drugs; Z79.02 Long term (current) use of antithrombotics/antiplatelets
CPT/HCPCS: 36415; 74176; 80053; 83690; 85025; 99283; 99284; A9270

== ENCOUNTER 2019-02-14 22:53 | Emergency (ER) | payer MEDICARE, MEDICAID ==
--- NOTE | 2019-02-14 23:23 | ED Physician Documentation ---
History of Present Illness - Stated complaint Stated Complaint: HBP/NAUSEA - Chief complaint Chief Complaint: Neuro - History obtained from History obtained from: Patient - History of Present Illness Timing: Today Pain level max: 0 Pain level now: 0 Improved by: lying still Worsened by: movement of head - Additonal information Additional information: c/o sudden onset of dizziness, described as sensation of room spinning, onset approximately 30 minutes [employer] while ambulating at home. Family then measured her BP and they report that BP was 206/188. Review of Systems Constitutional: reports: Reviewed and negative Eyes: reports: Reviewed and negative Ears: reports: Reviewed and negative Nose: reports: Reviewed and negative Cardiac: reports: Reviewed and negative Respiratory: reports: Reviewed and negative GI: reports: Nausea. 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 - Present Medications Home Medications: Ambulatory Orders Medication Instructions Recorded Confirmed Losartan [Cozaar] 50 mg PO ONCE 10/28/12 06/02/17 Metformin HCl 1,000 mg PO BID 10/28/12 06/02/17 Ranitidine HCl 300 mg PO BID 10/28/12 06/02/17 Simvastatin [Zocor] 10 mg PO QPM 10/28/12 06/02/17 Clopidogrel [Plavix] 75 mg PO ONCE 03/29/13 06/02/17 Metoprolol Succinate [Toprol Xl] 25 mg PO 06/02/17 Amox/Clav 875/125 [Augmentin] 1 each PO Q8HR #20 tablet 11/19/18 Meclizine [Antivert] 25 mg PO Q6H PRN #20 tablet 02/15/19 - Allergies Allergies/Adverse Reactions: Allergies Allergy/AdvReac Type Severity Reaction Status Date / Time contrast dye Allergy Rash Uncoded 02/14/19 23:03 - Social History Does the pt smoke?: No Smoking Status: Never smoker Does the pt drink ETOH?: No Does the pt have substance abuse?: No - Immunizations Immunizations are current?: No Immunizations: TDAP >10years/unknown - POLST Patient has POLST: No PD ED PE NORMAL - Vitals Vital signs reviewed: Yes - General General: Alert and oriented X 3, No acute distress (NAD at rest but appears uncomfortable with movements such as turning head or sitting up), Well developed/nourished - HEENT HEENT: PERRL, EOMI - Neck Neck: Supple, no meningeal sign - Cardiac Cardiac: RRR, No murmur - Respiratory Respiratory: No respiratory distress, Clear bilaterally - Abdomen Abdomen: Soft, Non tender - Neuro Neuro: Alert and oriented X 3, windows application 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 2-12 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, No motor deficit, No sensory deficit, Normal speech Results - Vitals Vitals: Vital Signs - 24 hr 02/14/19 02/15/19 02/15/19 23:00 00:26 00:30 Temperature 36.8 C Heart Rate 65 73 76 Respiratory 18 16 17 Rate Blood Pressure 220/90 H 224/79 H O2 Saturation 97 97 96 02/15/19 02/15/19 02/15/19 01:04 01:09 01:39 Temperature Heart Rate 73 67 Respiratory 18 17 17 Rate Blood Pressure 205/85 H 171/66 H O2 Saturation 100 99 02/15/19 02:12 Temperature Heart Rate 66 Respiratory 16 Rate Blood Pressure O2 Saturation Oxygen O2 Source Room air - Labs Labs: Laboratory Tests 02/15/19 02/15/19 02/15/19 00:10 00:31 00:31 WBC 6.4 RBC 3.62 L Hgb 11.4 L Hct 35.0 L MCV 96.7 MCH 31.5 H MCHC 32.6 RDW 12.6 Plt Count 338 MPV 8.8 Neut # (Auto) 3.5 Lymph # (Auto) 1.8 [place] # (Auto) 0.5 Eos # (Auto) 0.4 Baso # (Auto) 0.1 Absolute Nucleated RBC 0.00 Nucleated RBC % 0.0 Sodium 134 L Potassium 3.9 Chloride 99 L Carbon Dioxide 24 Anion Gap 11.0 BUN 23 H Creatinine 1.2 H Estimated GFR (MDRD) 43 L Glucose 151 H Calcium 9.8 Total Bilirubin 0.6 AST 25 ALT 15 Alkaline Phosphatase 78 Total Protein 8.4 H Albumin 4.4 Globulin 4.0 Albumin/Globulin Ratio 1.1 Lipase 64 H Urine Color YELLOW Urine Clarity CLEAR Urine pH 7.0 Ur Specific [place] 1.010 Urine Protein TRACE Urine Glucose (UA) NEGATIVE Urine Ketones NEGATIVE Urine Occult Blood NEGATIVE Urine Nitrite NEGATIVE Urine Bilirubin NEGATIVE Urine Urobilinogen 0.2 (NORMAL) Ur Leukocyte Esterase NEGATIVE Ur Microscopic Review NOT INDICATED Urine Culture Comments NOT INDICATED PD MEDICAL DECISION MAKING - ED course Complexity details: reviewed results, re-evaluated patient, considered differential, d/w patient, d/w family ED course: BP improved during ED stay without administration of specific (antihypertensive) medications. She reported improvement in symptoms with IV zofran and po meclizine. Departure - Departure Disposition: 01 Home, Self Care Clinical Impression: Vertigo Hypertension Qualifiers: Hypertension type: essential hypertension Qualified Code(s): I10 - Essential (primary) hypertension Condition: Good Instructions: ED Hypertension Conf Out Of Control, Meclizine, ED Vertigo Unspecified Follow-Up: Medina Ramirez ARNP [Primary Care Provider] - Prescriptions: Meclizine [Antivert] 25 mg PO Q6H PRN #20 tablet PRN Reason: Vertigo Discharge Date/Time: 02/15/19 02:40
[2019-02-14] MEDS ORDERED: SODIUM CHLORIDE 0.9% 500 ML IV STA (23:58)
[2019-02-14] MEDS ORDERED: MECLIZINE 12.5 MG TABLET PO STA (23:58)
[2019-02-14] MEDS ORDERED: ONDANSETRON 4 MG/2 ML VIAL IVP STA (23:58)
[2019-02-15 00:21] LABS: BILIRUBIN,URINE NEGATIVE (NEGATIVE); CLARITY,URINE CLEAR (CLEAR); GLUCOSE, URINE (UA) NEGATIVE (NEGATIVE); KETONES,URINE (UA) NEGATIVE (NEGATIVE); LEUKOCYTE ESTERASE, URINE NEGATIVE (NEGATIVE); NITRITE,URINE NEGATIVE (NEGATIVE); OCCULT BLOOD,URINE NEGATIVE (NEGATIVE); PROTEIN,URINE TRACE mg/dL (NEGATIVE); UROBILINOGEN,URINE 0.2 (NORMAL) E.U./dL (NORMAL)
[2019-02-15 00:43] LABS: BASOPHILS # (AUTO) 0.1 10^3/uL (0.0-0.1); BASOPHILS % (AUTO) 0.9 %; EOSINOPHILS # (AUTO) 0.4 10^3/uL (0.0-0.7); EOSINOPHILS % (AUTO) 5.8 %; HGB - HEMOGLOBIN 11.4 g/dL (12.0-16.0); LYMPHOCYTES # (AUTO) 1.8 10^3/uL (1.5-3.5); LYMPHOCYTES % (AUTO) 28.5 %; MEAN CORPUSCULAR HEMOGLOBIN 31.5 pg (27.0-31.0); MEAN CORPUSCULAR HGB CONC 32.6 g/dL (32.0-36.0); MEAN CORPUSCULAR VOLUME 96.7 fL (81.0-99.0); MEAN PLATELET VOLUME 8.8 fL (7.9-10.8); MONOCYTES # (AUTO) 0.5 10^3/uL (0.0-1.0); MONOCYTES % (AUTO) 8.5 %; NEUTROPHILS # (AUTO) 3.5 10^3/uL (1.5-6.6); NEUTROPHILS % (AUTO) 55.7 %; PLT - PLATELET COUNT 338 10^3/uL (130-450); RED BLOOD COUNT 3.62 10^6/uL (4.20-5.40); RED CELL DISTRIBUTION WIDTH 12.6 % (12.0-15.0); WHITE BLOOD COUNT 6.4 x10^3/uL (4.8-10.8)
[2019-02-15 00:55] LABS: ALBUMIN 4.4 g/dL (3.2-5.5); ALBUMIN/GLOBULIN RATIO 1.1 (1.0-2.2); BILIRUBIN,TOTAL 0.6 mg/dL (0.2-1.0); CALCIUM 9.8 mg/dL (8.5-10.3); CREATININE 1.2 mg/dL (0.4-1.0); TOTAL PROTEIN 8.4 g/dL (6.7-8.2)
[2019-02-15 01:40] VITALS: BP 171/66
== END 2019-02-15 02:40 | disposition home or self-care (01) ==
LOC: ED 22:53
DX: R42 Dizziness and giddiness (principal); I10 Essential (primary) hypertension; R11.0 Nausea; E11.9 Type 2 diabetes mellitus without complications; Z79.84 Long term (current) use of oral hypoglycemic drugs; Z79.02 Long term (current) use of antithrombotics/antiplatelets
CPT/HCPCS: 36415; 80053; 81003; 83690; 85025; 96374; 99284; A9270; 81001; 87086

== ENCOUNTER 2019-04-02 13:53 | Outpatient (CLI) | payer MEDICARE, MEDICAID ==
--- NOTE | 2019-04-02 15:12 | XRAY Report ---
Reason: cough Procedure Date: 04/02/2019 Accession Number: [id number] / [id number] Procedure: XRN - Chest 2 View X-Ray CPT Code: 51135 Final Report FULL RESULT: EXAM: CHEST RADIOGRAPHY EXAM DATE: 04/02/2019 02:22 PM. CLINICAL HISTORY: Cough. COMPARISON: CHEST 2 VIEW PA/LAT 10/11/2016 8:56 PM RIBS W/PA CHEST RT 10/28/2012 6:21 PM XR CHEST PA AND LAT 11/27/2010 2:47 PM. TECHNIQUE: 2 views. FINDINGS: Lungs/Pleura: Prominent right pulmonary artery versus hilar density No pleural effusion. No pneumothorax. Normal volumes. Mediastinum: Heart size normal. Ectatic aorta prominent pulmonary arteries Other: None. IMPRESSION: Right hilar density versus pulmonary artery on end. Recommend CT scan [facility]
== END 2019-04-02 13:54 | disposition home or self-care (01) ==
LOC: DI.N 13:53
PROVIDERS: ATTEND Nurse Practitioner Gerontology
DX: R06.89 Other abnormalities of breathing (principal); R05 Cough
CPT/HCPCS: 71046

== ENCOUNTER 2019-04-12 08:23 | Outpatient (CLI) | payer MEDICARE, MEDICAID ==
[2019-04-12 11:54] LABS: BASOPHILS # (AUTO) 0.1 10^3/uL (0.0-0.1); BASOPHILS % (AUTO) 1.2 %; EOSINOPHILS # (AUTO) 0.3 10^3/uL (0.0-0.7); EOSINOPHILS % (AUTO) 6.1 %; LYMPHOCYTES % (AUTO) 38.4 %; MEAN CORPUSCULAR HEMOGLOBIN 32.2 pg (27.0-31.0); MEAN CORPUSCULAR HGB CONC 32.9 g/dL (32.0-36.0); MEAN CORPUSCULAR VOLUME 97.9 fL (81.0-99.0); MEAN PLATELET VOLUME 9.5 fL (7.9-10.8); MONOCYTES # (AUTO) 0.6 10^3/uL (0.0-1.0); MONOCYTES % (AUTO) 10.8 %; NEUTROPHILS # (AUTO) 2.2 10^3/uL (1.5-6.6); NEUTROPHILS % (AUTO) 43.3 %; PLT - PLATELET COUNT 374 10^3/uL (130-450); RED BLOOD COUNT 3.73 10^6/uL (4.20-5.40); RED CELL DISTRIBUTION WIDTH 12.3 % (12.0-15.0); WHITE BLOOD COUNT 5.1 x10^3/uL (4.8-10.8)
[2019-04-12 12:09] LABS: ALBUMIN 4.9 g/dL (3.2-5.5); ALBUMIN/GLOBULIN RATIO 1.4 (1.0-2.2); ALKALINE PHOSPHATASE 66 IU/L (42-121); ALT ALANINE AMINOTRANSFERASE 13 IU/L (10-60); AST ASPARTATE AMINOTRANSFERASE 23 IU/L (10-42); BILIRUBIN,TOTAL 0.6 mg/dL (0.2-1.0); BUN - BLOOD UREA NITROGEN 20 mg/dL (6-20); CALCIUM 9.8 mg/dL (8.5-10.3); CARBON DIOXIDE - CO2 23 mmol/L (21-32); CHLORIDE 102 mmol/L (101-111); CHOL/HDL RATIO 2.3 (<4.4); CHOLESTEROL 149 mg/dL; GFR - MDRD 53 (>89); GLUCOSE 121 mg/dL (70-100); HDL CHOLESTEROL 66 mg/dL; LDL CHOLESTEROL,CALCULATED 71 mg/dL; LDL/HDL RATIO 1.1 (<4.4); SODIUM 136 mmol/L (135-145); TOTAL PROTEIN 8.5 g/dL (6.7-8.2); VLDL CHOLESTEROL 12 mg/dL
[2019-04-12 12:33] LABS: HEMOGLOBIN A1C 0.65 g/dL; HEMOGLOBIN A1C % 7.1 % (4.6-6.2)
== END 2019-04-12 23:59 | disposition home or self-care (01) ==
LOC: LAB.N 08:23
PROVIDERS: ATTEND Nurse Practitioner Gerontology
DX: E11.9 Type 2 diabetes mellitus without complications (principal); E78.5 Hyperlipidemia, unspecified; E04.1 Nontoxic single thyroid nodule; D64.9 Anemia, unspecified
CPT/HCPCS: 36415; 80053; 80061; 83036; 83721; 84443; 85025

== ENCOUNTER 2019-04-23 10:43 | Outpatient (CLI) | payer MEDICARE, MEDICAID ==
--- NOTE | 2019-04-23 15:13 | CT Report ---
Reason: COUGH Procedure Date: 04/23/2019 Accession Number: [id number] / [id number] Procedure: CT - CHEST WO CPT Code: Final Report FULL RESULT: EXAM: CT CHEST EXAM DATE: 04/23/2019 01:01 PM. CLINICAL HISTORY: Cough. Abnormal hilar density seen on x-ray. COMPARISONS: 04/02/2019 radiograph. TECHNIQUE: Routine helical CT imaging was performed through the chest. IV contrast: None. Reconstructions: Coronal and sagittal. In accordance with CT protocol optimization, one or more of the following dose reduction techniques were utilized for this exam: automated exposure control, adjustment of mA and/or KV based on patient size, or use of iterative reconstructive technique. FINDINGS: Lungs/Pleura: No nodules, bronchial thickening, consolidation, or edema. Pulmonary vasculature is normal. No pericardial or pleural effusion. No pneumothorax. Atelectasis is in the right middle lobe. Mediastinum: Arterial calcifications indicate atherosclerosis. Coronary artery calcifications are seen. No pericardial effusion. The heart size is normal. Bones: The T12 vertebral body demonstrates an old 2-column burst fracture with one-third height loss anteriorly and mild retropulsion of the posterior inferior corner. Visualized Abdomen: The patient has had a cholecystectomy. The other visualized upper abdominal organs are unremarkable on this noncontrast examination. Other: Arterial calcifications indicate atherosclerosis. IMPRESSION: 1. The finding on the prior radiograph corresponds to normal vessels. 2. Old, 2-column burst fracture of T12. [facility]
== END 2019-04-23 10:44 | disposition home or self-care (01) ==
LOC: DI 10:43
PROVIDERS: ATTEND Nurse Practitioner Gerontology
DX: R05 Cough (principal); R06.89 Other abnormalities of breathing
CPT/HCPCS: 71250

== ENCOUNTER 2019-11-24 09:45 | Outpatient (CLI) | payer MEDICARE, MEDICAID ==
[2019-11-24 12:08] LABS: BASOPHILS # (AUTO) 0.1 10^3/uL (0.0-0.1); EOSINOPHILS # (AUTO) 0.3 10^3/uL (0.0-0.7); EOSINOPHILS % (AUTO) 5.4 %; LYMPHOCYTES # (AUTO) 1.5 10^3/uL (1.5-3.5); LYMPHOCYTES % (AUTO) 30.4 %; MEAN CORPUSCULAR HEMOGLOBIN 31.6 pg (27.0-31.0); MEAN CORPUSCULAR HGB CONC 32.6 g/dL (32.0-36.0); MEAN CORPUSCULAR VOLUME 96.8 fL (81.0-99.0); MEAN PLATELET VOLUME 9.6 fL (7.9-10.8); MONOCYTES # (AUTO) 0.5 10^3/uL (0.0-1.0); MONOCYTES % (AUTO) 10.5 %; NEUTROPHILS # (AUTO) 2.6 10^3/uL (1.5-6.6); NEUTROPHILS % (AUTO) 52.5 %; PLT - PLATELET COUNT 343 10^3/uL (130-450); RED CELL DISTRIBUTION WIDTH 11.9 % (12.0-15.0)
[2019-11-24 12:38] LABS: HEMOGLOBIN A1c% 7.2 % (4.27-6.07)
[2019-11-24 12:40] LABS: ALBUMIN 4.5 g/dL (3.2-5.5); ALBUMIN/GLOBULIN RATIO 1.1 (1.0-2.2); ALKALINE PHOSPHATASE 91 IU/L (42-121); ALT ALANINE AMINOTRANSFERASE 11 IU/L (10-60); AST ASPARTATE AMINOTRANSFERASE 20 IU/L (10-42); BILIRUBIN,TOTAL 0.7 mg/dL (0.2-1.0); BUN - BLOOD UREA NITROGEN 18 mg/dL (6-20); CALCIUM 9.6 mg/dL (8.5-10.3); CARBON DIOXIDE - CO2 22 mmol/L (21-32); CHLORIDE 103 mmol/L (101-111); CHOL/HDL RATIO 2.4 (<4.4); CHOLESTEROL 144 mg/dL; GLUCOSE 115 mg/dL (70-100); HDL CHOLESTEROL 59 mg/dL; LDL CHOLESTEROL,CALCULATED 66 mg/dL; LDL/HDL RATIO 1.1 (<4.4); SODIUM 132 mmol/L (135-145); TOTAL PROTEIN 8.6 g/dL (6.7-8.2); VLDL CHOLESTEROL 19 mg/dL
== END 2019-11-24 23:59 | disposition home or self-care (01) ==
LOC: LAB.WCP 09:45
PROVIDERS: ATTEND Nurse Practitioner Family
DX: E11.9 Type 2 diabetes mellitus without complications (principal); I10 Essential (primary) hypertension; E78.5 Hyperlipidemia, unspecified
CPT/HCPCS: 36415; 80053; 80061; 83036; 83721; 84443; 85025

== ENCOUNTER 2020-03-11 14:50 | Emergency (ER) | payer MEDICARE, MEDICAID ==
[2020-03-11] MEDS ORDERED: ASPIRIN CHEW 81 MG TABLET PO STA (15:06)
--- NOTE | 2020-03-11 15:20 | ED Physician Documentation ---
PD HPI ABD PAIN - Stated complaint Stated Complaint: CHEST TIGHTNESS - Chief complaint Chief Complaint: Cardiac - History obtained from History obtained from: Patient - Additional information Additional information: 84-year-old woman with history of hypertension, type 2 diabetes, remote stroke in 1980, and atrial fibrillation although she was not aware of it but was present on previous EKGs presents with 3 days of shortness of breath, and mild chest tightness. There is no orthopnea, no pedal edema. No calf pain. She does have dyspnea on exertion. She has a mild cough, however she says that is not new and might be related to her medications. She is not on anticoagulants save she is on Plavix. Review of Systems Ten Systems: 10 systems reviewed and negative Constitutional: denies: Fever, Chills Eyes: denies: Loss of vision, Decreased vision, Photophobia Ears: denies: Loss of hearing, Ear pain Nose: denies: Rhinorrhea / runny nose, Congestion Throat: denies: Sore throat Cardiac: reports: Chest pain / pressure. denies: Palpitations, Pedal edema, Calf pain Respiratory: reports: Dyspnea, Cough. 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 - Present Medications Home Medications: Ambulatory Orders Medication Instructions Recorded Confirmed Losartan [Cozaar] 50 mg PO ONCE 10/28/12 06/02/17 Metformin HCl 1,000 mg PO BID 10/28/12 06/02/17 Simvastatin [Zocor] 10 mg PO QPM 10/28/12 06/02/17 raNITIdine HCL [Ranitidine HCl] 300 mg PO BID 10/28/12 06/02/17 Clopidogrel [Plavix] 75 mg PO ONCE 03/29/13 06/02/17 Metoprolol Succinate [Toprol Xl] 25 mg PO 06/02/17 Amox/Clav 875/125 [Augmentin] 1 each PO Q8HR #20 tablet 11/19/18 Meclizine [Antivert] 25 mg PO Q6H PRN #20 tablet 02/15/19 Oxycodone HCl/Acetaminophen 0.5 - 1 each PO Q6H PRN #10 tablet 10/30/19 [Percocet 5-325 mg Tablet] Furosemide [Lasix] 20 mg PO DAILY #5 tablet 03/11/20 Potassium Chloride 20 meq PO DAILY #5 tablet.er 03/11/20 - Allergies Allergies/Adverse Reactions: Allergies Allergy/AdvReac Type Severity Reaction Status Date / Time contrast dye Allergy Rash Uncoded 03/11/20 14:56 - Social History Does the pt smoke?: No Smoking Status: Never smoker Does the pt drink ETOH?: No Does the pt have substance abuse?: No - Immunizations Immunizations are current?: No Immunizations: TDAP >10years/unknown - POLST Patient has POLST: No PD ED PE NORMAL - Vitals Vital signs reviewed: Yes - General General: Alert and oriented X 3, No acute distress - HEENT HEENT: PERRL, EOMI - Neck Neck: Supple, no meningeal sign, No bony TTP - Cardiac Cardiac: Other (irregularly/irregular) - Respiratory Respiratory: No respiratory distress, Clear bilaterally - Abdomen Abdomen: Normal bowel sounds, Soft, Non tender - Back Back: No CVA TTP, No spinal TTP - Derm Derm: Normal color, Warm and dry - Extremities Extremities: No edema, No calf tenderness / cord - Neuro Neuro: Alert and oriented X 3, Normal speech Results - Vitals Vitals: Vital Signs - 24 hr 03/11/20 03/11/20 03/11/20 14:57 15:38 16:16 Temperature 36 C L Heart Rate 88 90 94 Respiratory 20 18 18 Rate Blood Pressure 133/80 H 157/80 H 142/80 H O2 Saturation 98 97 97 Oxygen O2 Source Room air - EKG (time done) 1457 Rate: Rate (enter#) (98) Rhythm: Atrial fibrillation [place]: Normal QRS: Normal, Low voltage Ischemia: Non specific changes. No: ST elevation c/w ischemia, ST depression Computer interpretation: Agree with computer - Labs Labs: Laboratory Tests 03/11/20 03/11/20 03/11/20 15:28 15:28 15:28 WBC 5.2 RBC 3.37 L Hgb 10.8 L Hct 32.8 L MCV 97.3 MCH 32.0 H MCHC 32.9 RDW 12.6 Plt Count 410 MPV 9.3 Neut # (Auto) 2.5 Lymph # (Auto) 1.9 [place] # (Auto) 0.6 Eos # (Auto) 0.2 Baso # (Auto) 0.0 Absolute Nucleated RBC 0.00 Nucleated RBC % 0.0 PT 12.7 H INR 1.1 Sodium 133 L Potassium 4.4 Chloride 100 L Carbon Dioxide 22 Anion Gap 11.0 BUN 22 H Creatinine 1.1 H Estimated GFR (MDRD) 47 L Glucose 120 H Calcium 9.7 Total Bilirubin 0.3 AST 21 ALT 11 Alkaline Phosphatase 69 Troponin I High Sens B-Natriuretic Peptide Total Protein 8.2 Albumin 4.4 Globulin 3.8 Albumin/Globulin Ratio 1.2 Lipase 36 03/11/20 03/11/20 15:28 15:28 WBC RBC Hgb Hct MCV MCH MCHC RDW Plt Count MPV Neut # (Auto) Lymph # (Auto) [place] # (Auto) Eos # (Auto) Baso # (Auto) Absolute Nucleated RBC Nucleated RBC % PT INR Sodium Potassium Chloride Carbon Dioxide Anion Gap BUN Creatinine Estimated GFR (MDRD) Glucose Calcium Total Bilirubin AST ALT Alkaline Phosphatase Troponin I High Sens 8.8 B-Natriuretic Peptide 727 H Total Protein Albumin Globulin Albumin/Globulin Ratio Lipase PD MEDICAL DECISION MAKING - ED course ED course: 84-year-old woman with history of atrial fibrillation presents with 3 days of breathlessness especially exertionally. No evidence of acute coronary syndrome. She is in A. fib, very mildly rapid. After 5 mg of diltiazem IV her heart r ate was generally in the 80s and she was already feeling better. Chest x-ray did not show pulmonary edema but the BNP was elevated, So seems likely she could benefit from some diuresis. She did not want to take Lasix here preferring to take it when she got home and was close to the toilet. Departure - Departure Disposition: 01 Home, Self Care Clinical Impression: Atrial fibrillation with rapid ventricular response Congestive heart failure Qualifiers: Heart failure type: other Qualified Code(s): I50.9 - Heart failure, unspecified Condition: Good Record reviewed to determine appropriate education?: Yes Instructions: Atrial Fibrillation Dc, ED CHF General Prescriptions: Furosemide [Lasix] 20 mg PO DAILY #5 tablet Potassium Chloride 20 meq PO DAILY #5 tablet.er Comments: Today you were seen for shortness of breath, that is a combination of having mild rapid atrial fibrillation (irregular heartbeat) and that caused a little extra fluid to go into your lungs. The diuretic should help with this. Follow- up with your primary care provider, next available appointment. Discuss whether you should be on an anticoagulant given the history of stroke and atrial fibrillation. Also she may want to order an echocardiogram on you to check heart function. Return if worsening. Best not to take the water pill too close to bedtime or you will be up all night. Discharge Date/Time: 03/11/20 16:24
[2020-03-11] MEDS ORDERED: diltiaZEM INJ 5 MG/ML VIAL IVP STA (15:21)
[2020-03-11 15:40] LABS: INR 1.1 (0.8-1.2); PT - PROTHROMBIN TIME 12.7 secs (9.9-12.6)
[2020-03-11 15:42] LABS: BASOPHILS % (AUTO) 0.8 %; EOSINOPHILS # (AUTO) 0.2 10^3/uL (0.0-0.7); EOSINOPHILS % (AUTO) 3.5 %; HGB - HEMOGLOBIN 10.8 g/dL (12.0-16.0); LYMPHOCYTES # (AUTO) 1.9 10^3/uL (1.5-3.5); LYMPHOCYTES % (AUTO) 36.6 %; MEAN CORPUSCULAR HGB CONC 32.9 g/dL (32.0-36.0); MEAN CORPUSCULAR VOLUME 97.3 fL (81.0-99.0); MEAN PLATELET VOLUME 9.3 fL (7.9-10.8); MONOCYTES # (AUTO) 0.6 10^3/uL (0.0-1.0); MONOCYTES % (AUTO) 10.6 %; NEUTROPHILS # (AUTO) 2.5 10^3/uL (1.5-6.6); NEUTROPHILS % (AUTO) 48.3 %; PLT - PLATELET COUNT 410 10^3/uL (130-450); RED BLOOD COUNT 3.37 10^6/uL (4.20-5.40); RED CELL DISTRIBUTION WIDTH 12.6 % (12.0-15.0); WHITE BLOOD COUNT 5.2 x10^3/uL (4.8-10.8)
[2020-03-11 15:49] LABS: ALBUMIN 4.4 g/dL (3.2-5.5); ALBUMIN/GLOBULIN RATIO 1.2 (1.0-2.2); BILIRUBIN,TOTAL 0.3 mg/dL (0.2-1.0); CALCIUM 9.7 mg/dL (8.5-10.3); CREATININE 1.1 mg/dL (0.4-1.0); TOTAL PROTEIN 8.2 g/dL (6.7-8.2)
[2020-03-11 16:16] VITALS: BP 142/80
--- NOTE | 2020-03-11 16:23 | XRAY Report ---
PROCEDURE: Chest 1 View X-Ray INDICATIONS: Chest Pain TECHNIQUE: One view of the chest was acquired. COMPARISON: CT chest 04/23/2019. CXR 04/02/2019. FINDINGS: Surgical changes and devices: None. Lungs and pleura: No pleural effusions or pneumothorax. Lungs are clear. Mediastinum: Mediastinal contours appear normal. Heart size is normal. Bones and chest wall: No suspicious bony lesions. Overlying soft tissues appear unremarkable. IMPRESSION: No acute cardiopulmonary abnormality. Reviewed by: Kamari Padilla MD on 03/11/2020 3:22 PM [facility] Approved by: Kamari Padilla MD on 03/11/2020 3:22 PM [facility] Station ID: [id number]
== END 2020-03-11 16:24 | disposition home or self-care (01) ==
LOC: ED 14:50
DX: I48.91 Unspecified atrial fibrillation (principal); I50.9 Heart failure, unspecified; I11.0 Hypertensive heart disease with heart failure; E11.9 Type 2 diabetes mellitus without complications; Z79.84 Long term (current) use of oral hypoglycemic drugs; Z86.73 Personal history of transient ischemic attack (TIA), and cerebral infarction without residual deficits; Z79.02 Long term (current) use of antithrombotics/antiplatelets
CPT/HCPCS: 36415; 71045; 80053; 83690; 83880; 84484; 85025; 85610; 93005; 96374; 99284; 99285; A9270

== ENCOUNTER 2020-03-16 08:00 | Outpatient (CLI) | payer MEDICARE, MEDICAID ==
[2020-03-16 14:33] LABS: CALCIUM 9.3 mg/dL (8.5-10.3); CREATININE 1.3 mg/dL (0.4-1.0)
== END 2020-03-16 23:59 | disposition home or self-care (01) ==
LOC: LAB.WCP 08:00
PROVIDERS: ATTEND Nurse Practitioner Family
DX: I50.9 Heart failure, unspecified (principal)
CPT/HCPCS: 36415; 80048; 83880

== ENCOUNTER 2020-11-29 08:00 | Outpatient (CLI) | payer MEDICARE, MEDICAID ==
[2020-11-29 12:08] LABS: BASOPHILS # (AUTO) 0.1 10^3/uL (0.0-0.1); EOSINOPHILS # (AUTO) 0.3 10^3/uL (0.0-0.7); EOSINOPHILS % (AUTO) 5.5 %; HCT - HEMATOCRIT 39.5 % (37.0-47.0); HGB - HEMOGLOBIN 12.5 g/dL (12.0-16.0); LYMPHOCYTES # (AUTO) 1.5 10^3/uL (1.5-3.5); LYMPHOCYTES % (AUTO) 31.6 %; MEAN CORPUSCULAR HEMOGLOBIN 31.6 pg (27.0-31.0); MEAN CORPUSCULAR HGB CONC 31.6 g/dL (32.0-36.0); MONOCYTES # (AUTO) 0.5 10^3/uL (0.0-1.0); MONOCYTES % (AUTO) 11.1 %; NEUTROPHILS # (AUTO) 2.5 10^3/uL (1.5-6.6); NEUTROPHILS % (AUTO) 50.6 %; PLT - PLATELET COUNT 328 10^3/uL (130-450); RED BLOOD COUNT 3.95 10^6/uL (4.20-5.40); RED CELL DISTRIBUTION WIDTH 12.5 % (12.0-15.0); WHITE BLOOD COUNT 4.9 x10^3/uL (4.8-10.8)
[2020-11-29 12:24] LABS: CREATININE,URINE 121.7 mg/dL; MICROALBUM/CREATININE RATIO,UR 80.5 ug/mg (<30.0); MICROALBUMIN,URINE 9.8 mg/dL (0-300.0)
[2020-11-29 12:37] LABS: ALBUMIN 4.5 g/dL (3.2-5.5); ALBUMIN/GLOBULIN RATIO 1.2 (1.0-2.2); ALKALINE PHOSPHATASE 73 IU/L (42-121); ALT ALANINE AMINOTRANSFERASE 13 IU/L (10-60); AST ASPARTATE AMINOTRANSFERASE 23 IU/L (10-42); BILIRUBIN,TOTAL 0.9 mg/dL (0.2-1.0); BUN - BLOOD UREA NITROGEN 33 mg/dL (6-20); CALCIUM 9.9 mg/dL (8.5-10.3); CARBON DIOXIDE - CO2 26 mmol/L (21-32); CHLORIDE 103 mmol/L (101-111); CHOL/HDL RATIO 3.1 (<4.4); CHOLESTEROL 131 mg/dL; CREATININE 1.3 mg/dL (0.4-1.0); GFR - MDRD 39 (>89); GLUCOSE 191 mg/dL (70-100); HDL CHOLESTEROL 42 mg/dL; LDL CHOLESTEROL,CALCULATED 74 mg/dL; LDL/HDL RATIO 1.8 (<4.4); POTASSIUM 4.1 mmol/L (3.5-5.0); SODIUM 141 mmol/L (135-145); TOTAL PROTEIN 8.4 g/dL (6.7-8.2); TRIGLYCERIDES 76 mg/dL; VLDL CHOLESTEROL 15 mg/dL
[2020-11-29 12:38] LABS: THYROID STIMULATING HORMONE 1.61 uIU/mL (0.34-5.60)
[2020-11-29 13:22] LABS: ESTIMATED AVERAGE GLUCOSE 192 mg/dL (70-100); HEMOGLOBIN A1c% 8.3 % (4.27-6.07)
== END 2020-11-29 23:59 | disposition home or self-care (01) ==
LOC: LAB.WCP 08:00
PROVIDERS: ATTEND Family Medicine
DX: E11.9 Type 2 diabetes mellitus without complications (principal); E78.5 Hyperlipidemia, unspecified; E04.1 Nontoxic single thyroid nodule
CPT/HCPCS: 36415; 80053; 80061; 82043; 82570; 83036; 83721; 84443; 85025

== ENCOUNTER 2021-04-03 08:00 | Outpatient (CLI) | payer MEDICARE, MEDICAID ==
[2021-04-03 18:42] LABS: BASOPHILS # (AUTO) 0.1 10^3/uL (0.0-0.1); BASOPHILS % (AUTO) 0.7 %; EOSINOPHILS # (AUTO) 0.3 10^3/uL (0.0-0.7); EOSINOPHILS % (AUTO) 3.6 %; HCT - HEMATOCRIT 39.5 % (37.0-47.0); HGB - HEMOGLOBIN 12.7 g/dL (12.0-16.0); LYMPHOCYTES # (AUTO) 1.9 10^3/uL (1.5-3.5); LYMPHOCYTES % (AUTO) 27.2 %; MEAN CORPUSCULAR HEMOGLOBIN 31.5 pg (27.0-31.0); MEAN CORPUSCULAR HGB CONC 32.2 g/dL (32.0-36.0); MEAN PLATELET VOLUME 9.9 fL (7.9-10.8); MONOCYTES # (AUTO) 0.8 10^3/uL (0.0-1.0); MONOCYTES % (AUTO) 11.3 %; NEUTROPHILS % (AUTO) 57.1 %; PLT - PLATELET COUNT 290 10^3/uL (130-450); RED BLOOD COUNT 4.03 10^6/uL (4.20-5.40)
[2021-04-03 18:56] LABS: CREATININE,URINE 21.4 mg/dL; MICROALBUM/CREATININE RATIO,UR 42.1 ug/mg (<30.0); MICROALBUMIN,URINE 0.9 mg/dL (0-300.0)
[2021-04-03 19:25] LABS: ALBUMIN 4.4 g/dL (3.2-5.5); ALBUMIN/GLOBULIN RATIO 1.2 (1.0-2.2); ALKALINE PHOSPHATASE 55 IU/L (42-121); ALT ALANINE AMINOTRANSFERASE 25 IU/L (10-60); AST ASPARTATE AMINOTRANSFERASE 35 IU/L (10-42); BILIRUBIN,TOTAL 0.8 mg/dL (0.2-1.0); BUN - BLOOD UREA NITROGEN 19 mg/dL (6-20); CHOL/HDL RATIO 3.3 (<4.4); CHOLESTEROL 143 mg/dL; CREATININE 1.2 mg/dL (0.4-1.0); GFR - MDRD 43 (>89); HDL CHOLESTEROL 44 mg/dL; LDL CHOLESTEROL,CALCULATED 71 mg/dL; LDL/HDL RATIO 1.6 (<4.4); TOTAL PROTEIN 8.1 g/dL (6.7-8.2); TRIGLYCERIDES 138 mg/dL; VLDL CHOLESTEROL 28 mg/dL
[2021-04-03 19:28] LABS: CALCIUM 9.8 mg/dL (8.5-10.3); CARBON DIOXIDE - CO2 25 mmol/L (21-32); CHLORIDE 101 mmol/L (101-111); GLUCOSE 116 mg/dL (70-100); SODIUM 138 mmol/L (135-145)
[2021-04-03 20:28] LABS: ESTIMATED AVERAGE GLUCOSE 192 mg/dL (70-100); HEMOGLOBIN A1c% 8.3 % (4.27-6.07)
== END 2021-04-03 23:59 ==
LOC: LAB.WCP 08:00
PROVIDERS: ATTEND Family Medicine
DX: E11.9 Type 2 diabetes mellitus without complications (principal)
CPT/HCPCS: 36415; 80053; 80061; 82043; 82570; 83036; 83721; 85025

== ENCOUNTER 2021-04-19 08:00 | Outpatient (CLI) | payer MEDICARE, MEDICAID ==
[2021-04-19 20:47] LABS: BASOPHILS # (AUTO) 0.1 10^3/uL (0.0-0.1); EOSINOPHILS # (AUTO) 0.3 10^3/uL (0.0-0.7); EOSINOPHILS % (AUTO) 3.7 %; HCT - HEMATOCRIT 40.6 % (37.0-47.0); HGB - HEMOGLOBIN 13.1 g/dL (12.0-16.0); LYMPHOCYTES # (AUTO) 2.2 10^3/uL (1.5-3.5); LYMPHOCYTES % (AUTO) 28.2 %; MEAN CORPUSCULAR HEMOGLOBIN 31.6 pg (27.0-31.0); MEAN CORPUSCULAR HGB CONC 32.3 g/dL (32.0-36.0); MEAN CORPUSCULAR VOLUME 97.8 fL (81.0-99.0); MEAN PLATELET VOLUME 10.1 fL (7.9-10.8); MONOCYTES # (AUTO) 0.8 10^3/uL (0.0-1.0); MONOCYTES % (AUTO) 10.2 %; NEUTROPHILS # (AUTO) 4.3 10^3/uL (1.5-6.6); NEUTROPHILS % (AUTO) 56.5 %; PLT - PLATELET COUNT 309 10^3/uL (130-450); RED BLOOD COUNT 4.15 10^6/uL (4.20-5.40); RED CELL DISTRIBUTION WIDTH 12.7 % (12.0-15.0); WHITE BLOOD COUNT 7.7 x10^3/uL (4.8-10.8)
[2021-04-19 20:57] LABS: CALCIUM 9.8 mg/dL (8.5-10.3); CREATININE 1.4 mg/dL (0.4-1.0); POTASSIUM 4.2 mmol/L (3.5-5.0)
[2021-04-19 21:25] LABS: THYROID STIMULATING HORMONE 1.82 uIU/mL (0.34-5.60)
== END 2021-04-19 23:59 | disposition home or self-care (01) ==
LOC: LAB.N 08:00
PROVIDERS: ATTEND Family Medicine
DX: R42 Dizziness and giddiness (principal); I48.0 Paroxysmal atrial fibrillation
CPT/HCPCS: 36415; 80048; 84443; 85025

== ENCOUNTER 2021-04-19 16:58 | Outpatient (CLI) | payer MEDICARE, MEDICAID ==
--- NOTE | 2021-04-20 09:13 | XRAY Report ---
PROCEDURE: Shoulder 2 View RT INDICATIONS: RIGHT SHOULDER PAIN TECHNIQUE: 2 views of the shoulder were acquired. COMPARISON: None. FINDINGS: Bones: No fractures or dislocations. Moderate acromioclavicular joint and glenohumeral joint osteoa rthritic changes are seen. No suspicious bony lesions. Visualized ribs appear intact. Soft tissues: Small calcifications are seen adjacent to greater tuberosity of humeral head most consi stent with calcific tendinitis. IMPRESSION: No acute shoulder fracture or dislocation. Moderate shoulder joint osteoarthritis. Sugge stion of calcific tendinitis involving distal rotator cuff tendon. Reviewed by: Narciso Reed MD on 04/20/2021 9:11 AM PST Approved by: Narciso Reed MD on 04/20/2021 9:11 AM PST Station ID: [id number]
== END 2021-04-19 16:59 | disposition home or self-care (01) ==
LOC: DI.N 16:58
PROVIDERS: ATTEND Family Medicine
DX: M19.011 Primary osteoarthritis, right shoulder (principal); R93.6 Abnormal findings on diagnostic imaging of limbs; R42 Dizziness and giddiness; I48.0 Paroxysmal atrial fibrillation
CPT/HCPCS: 36415; 80048; 84443; 85025

== ENCOUNTER 2021-05-07 09:35 | Outpatient (CLI) | payer MEDICARE, MEDICAID ==
[2021-05-07 12:01] LABS: CALCIUM 9.5 mg/dL (8.5-10.3); CREATININE 1.1 mg/dL (0.4-1.0); POTASSIUM 3.9 mmol/L (3.5-5.0)
== END 2021-05-07 09:36 | disposition home or self-care (01) ==
LOC: LAB.N 09:35
PROVIDERS: ATTEND Family Medicine
DX: I10 Essential (primary) hypertension (principal)
CPT/HCPCS: 36415; 80048

== ENCOUNTER 2021-07-18 16:30 | Outpatient (CLI) | payer MEDICARE, MEDICAID ==
--- NOTE | 2021-07-18 16:55 | XRAY Report ---
PROCEDURE: Chest 2 View X-Ray INDICATIONS: PRODUCTIVE COUGH TECHNIQUE: 2 view(s) of the chest. COMPARISON: None. FINDINGS: Surgical changes and devices: None. Lungs and pleura: No pleural effusions or pneumothorax. Lungs are clear. Mediastinum: Mediastinal contours are normal. Heart size is normal. Bones and chest wall: No suspicious bony abnormalities. Soft tissues appear unremarkable. IMPRESSION: No acute pulmonary process. Reviewed by: Monserrat King MD on 07/18/2021 4:54 PM PDT Approved by: Monserrat King MD on 07/18/2021 4:54 PM PDT Station ID: [id number]
== END 2021-07-18 23:59 | disposition home or self-care (01) ==
LOC: DI.N 16:30
PROVIDERS: ATTEND Physician Assistant
DX: R05.8 Other specified cough (principal)

== ENCOUNTER 2021-07-23 15:51 | Outpatient (CLI) | payer MEDICARE, MEDICAID ==
--- NOTE | 2021-07-23 17:45 | XRAY Report ---
PROCEDURE: Chest 2 View X-Ray INDICATIONS: WHEEZING TECHNIQUE: 2 view(s) of the chest. COMPARISON: CXR 07/18/2021. CT chest 04/23/2019. FINDINGS: Surgical changes and devices: None. Lungs and pleura: No pleural effusions or pneumothorax. Lungs appear clear. Prominent lung volumes. Mediastinum: Mediastinal contours are normal. Heart size is normal. Bones and chest wall: No suspicious bony abnormalities. Soft tissues appear unremarkable. IMPRESSION: No acute cardiopulmonary abnormality. Reviewed by: Kamari Padilla MD on 07/23/2021 5:44 PM PDT Approved by: Kamari Padilla MD on 07/23/2021 5:44 PM PDT Station ID: [id number]
== END 2021-07-23 15:52 | disposition home or self-care (01) ==
LOC: LAB.N 15:51 → DI.N 15:52
PROVIDERS: ATTEND Nurse Practitioner Family
DX: J18.9 Pneumonia, unspecified organism (principal)

== ENCOUNTER 2022-04-10 07:26 | Outpatient (CLI) | payer MEDICARE, MEDICAID ==
[2022-04-10 12:53] LABS: ESTIMATED AVERAGE GLUCOSE 223 mg/dL (70-100); HEMOGLOBIN A1c% 9.4 % (4.27-6.07)
[2022-04-10 13:19] LABS: BASOPHILS # (AUTO) 0.1 10^3/uL (0.0-0.1); BASOPHILS % (AUTO) 1.1 %; EOSINOPHILS # (AUTO) 0.4 10^3/uL (0.0-0.7); EOSINOPHILS % (AUTO) 5.6 %; HCT - HEMATOCRIT 40.5 % (37.0-47.0); LYMPHOCYTES # (AUTO) 2.4 10^3/uL (1.5-3.5); MEAN CORPUSCULAR HEMOGLOBIN 31.6 pg (27.0-31.0); MEAN CORPUSCULAR HGB CONC 32.1 g/dL (32.0-36.0); MEAN CORPUSCULAR VOLUME 98.3 fL (81.0-99.0); MEAN PLATELET VOLUME 10.1 fL (7.9-10.8); MONOCYTES # (AUTO) 0.7 10^3/uL (0.0-1.0); MONOCYTES % (AUTO) 10.5 %; NEUTROPHILS # (AUTO) 3.3 10^3/uL (1.5-6.6); NEUTROPHILS % (AUTO) 47.5 %; PLT - PLATELET COUNT 296 10^3/uL (130-450); RED BLOOD COUNT 4.12 10^6/uL (4.20-5.40); RED CELL DISTRIBUTION WIDTH 12.3 % (12.0-15.0)
[2022-04-10 13:26] LABS: ALBUMIN 4.5 g/dL (3.2-5.5); ALBUMIN/GLOBULIN RATIO 1.3 (1.0-2.2); ALKALINE PHOSPHATASE 65 IU/L (42-121); ALT ALANINE AMINOTRANSFERASE 37 IU/L (10-60); AST ASPARTATE AMINOTRANSFERASE 45 IU/L (10-42); BUN - BLOOD UREA NITROGEN 18 mg/dL (6-20); CALCIUM 9.2 mg/dL (8.5-10.3); CARBON DIOXIDE - CO2 25 mmol/L (21-32); CHLORIDE 96 mmol/L (101-111); CHOL/HDL RATIO 2.8 (<4.4); CHOLESTEROL 139 mg/dL; CREATININE 1.1 mg/dL (0.4-1.0); GFR - MDRD 47 (>89); GLUCOSE 196 mg/dL (70-100); HDL CHOLESTEROL 49 mg/dL; LDL CHOLESTEROL,CALCULATED 65 mg/dL; LDL/HDL RATIO 1.3 (<4.4); SODIUM 131 mmol/L (135-145); TRIGLYCERIDES 123 mg/dL; VLDL CHOLESTEROL 25 mg/dL
[2022-04-10 13:29] LABS: THYROID STIMULATING HORMONE 2.44 uIU/mL (0.34-5.60)
== END 2022-04-10 07:27 | disposition home or self-care (01) ==
LOC: LAB.N 07:26
PROVIDERS: ATTEND Nurse Practitioner Family
DX: I13.0 Hypertensive heart and chronic kidney disease with heart failure and stage 1 through stage 4 chronic kidney disease, or unspecified chronic kidney disease (principal); E11.22 Type 2 diabetes mellitus with diabetic chronic kidney disease; I50.9 Heart failure, unspecified; N18.30 Chronic kidney disease, stage 3 unspecified; E78.5 Hyperlipidemia, unspecified
CPT/HCPCS: 36415; 80053; 80061; 83036; 83721; 84443; 85025

== ENCOUNTER 2022-04-12 15:27 | Emergency (ER) | payer MEDICARE, MEDICAID ==
[2022-04-12 16:17] LABS: BASOPHILS # (AUTO) 0.1 10^3/uL (0.0-0.1); BASOPHILS % (AUTO) 0.6 %; EOSINOPHILS # (AUTO) 0.3 10^3/uL (0.0-0.7); EOSINOPHILS % (AUTO) 3.2 %; HGB - HEMOGLOBIN 11.8 g/dL (12.0-16.0); LYMPHOCYTES # (AUTO) 2.2 10^3/uL (1.5-3.5); LYMPHOCYTES % (AUTO) 28.6 %; MEAN CORPUSCULAR HEMOGLOBIN 31.2 pg (27.0-31.0); MEAN CORPUSCULAR HGB CONC 31.9 g/dL (32.0-36.0); MEAN CORPUSCULAR VOLUME 97.9 fL (81.0-99.0); MEAN PLATELET VOLUME 9.5 fL (7.9-10.8); MONOCYTES # (AUTO) 0.9 10^3/uL (0.0-1.0); MONOCYTES % (AUTO) 11.5 %; NEUTROPHILS # (AUTO) 4.3 10^3/uL (1.5-6.6); NEUTROPHILS % (AUTO) 55.8 %; PLT - PLATELET COUNT 264 10^3/uL (130-450); RED BLOOD COUNT 3.78 10^6/uL (4.20-5.40); RED CELL DISTRIBUTION WIDTH 12.3 % (12.0-15.0); WHITE BLOOD COUNT 7.7 x10^3/uL (4.8-10.8)
--- NOTE | 2022-04-12 16:24 | ED Physician Documentation ---
History of Present Illness - Stated complaint Stated Complaint: DIZZY/WEAK - Chief complaint Chief Complaint: Neuro - History obtained from History obtained from: Patient, Family - History of Present Illness Timing: Yesterday Pain level max: 0 Pain level now: 0 - Additonal information Additional information: Patient is an 86-year-old female who presents to the emergency department complaining of dizziness for the past 2 days. She lives at home with family. Seems to be worse with standing. She is diabetic but has not been checking her blood sugar. She also has a history of atrial fibrillation and is on metoprolol for this at home. She is also on Eliquis and flecainide. She states that the dizziness is lightheadedness, near syncope. Emesis x1 today. No current abdominal pain or chest pain. 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 - Present Medications Home Medications: Ambulatory Orders Medication Instructions Recorded Confirmed Metformin HCl 1,000 mg PO DAILY 10/28/12 04/12/22 Simvastatin [Zocor] 10 mg PO QPM 10/28/12 04/12/22 Clopidogrel [Plavix] 75 mg PO ONCE 03/29/13 04/12/22 Metoprolol Succinate [Toprol Xl] 12.5 mg PO DAILY PM 06/02/17 04/12/22 Furosemide [Lasix] 20 mg PO DAILY #5 tablet 03/11/20 04/12/22 Potassium Chloride 20 meq PO DAILY #5 tablet.er 03/11/20 04/12/22 Albuterol Sulf [Ventolin Hfa 1 - 2 puffs INH Q4HR PRN #1 each 04/12/22 Inhaler] Flecainide Acetate 50 mg PO BID 04/12/22 04/12/22 - Allergies Allergies/Adverse Reactions: Allergies Allergy/AdvReac Type Severity Reaction Status Date / Time contrast dye Allergy Rash Uncoded 04/12/22 15:43 seasonal Allergy Unknown Uncoded 04/12/22 15:43 - Social History Does the pt smoke?: No Smoking Status: Never smoker Does the pt drink ETOH?: No Does the pt have substance abuse?: No - Immunizations Immunizations are current?: No Immunizations: TDAP >10years/unknown - POLST Patient has POLST: No PD ED PE NORMAL - Vitals Vital signs reviewed: Yes - General General: Alert and oriented X 3, No acute distress, Well developed/nourished - HEENT HEENT: PERRL, Moist mucous membranes - Neck Neck: Supple, no meningeal sign - Cardiac Cardiac: RRR, Strong equal pulses - Respiratory Respiratory: No respiratory distress, Clear bilaterally - Abdomen Abdomen: Soft, Non tender, Non distended - Back Back: No CVA TTP, No spinal TTP - Derm Derm: Warm and dry, No rash - Extremities Extremities: No calf tenderness / cord - Neuro Neuro: Alert and oriented X 3 - Psych Psych: Normal mood, Normal affect Results - Vitals Vitals: Vital Signs - 24 hr 04/12/22 04/12/22 04/12/22 15:40 16:50 18:48 Temperature 36.8 C Heart Rate 68 45 L 45 L Respiratory 20 20 21 Rate Blood Pressure 113/83 H 128/83 H 128/107 H O2 Saturation 97 96 93 If not protocol : Oxygen Flow, liters/minute 04/12/22 04/12/22 19:24 20:09 Temperature Heart Rate 78 64 Respiratory 21 21 Rate Blood Pressure 127/64 O2 Saturation 96 If not protocol 2 : Oxygen Flow, liters/minute Oxygen O2 Source Nasal cannula - EKG (time done) 1547 Rate: Rate (enter#) (47) Rhythm: Sinus bradycardia, Other (pac) [place]: LAD Intervals: Normal NC QRS: Normal - Labs Labs: Laboratory Tests 04/12/22 04/12/22 04/12/22 15:38 15:58 15:58 WBC 7.7 RBC 3.78 L Hgb 11.8 L Hct 37.0 MCV 97.9 MCH 31.2 H MCHC 31.9 L RDW 12.3 Plt Count 264 MPV 9.5 Neut # (Auto) 4.3 Lymph # (Auto) 2.2 [place] # (Auto) 0.9 Eos # (Auto) 0.3 Baso # (Auto) 0.1 Absolute Nucleated RBC 0.00 Nucleated RBC % 0.0 Sodium 130 L Potassium 5.1 H Chloride 97 L Carbon Dioxide 20 L Anion Gap 13.0 BUN 18 Creatinine 1.2 H Estimated GFR (MDRD) 43 L Glucose 368 H POC Whole Bld Glucose 344 H Estimat Average Glucose Hemoglobin A1c % Calcium 8.7 Total Bilirubin 0.7 AST 63 H ALT 48 Alkaline Phosphatase 61 Troponin I High Sens Total Protein 7.4 Albumin 4.1 Globulin 3.3 Albumin/Globulin Ratio 1.2 Lipase 45 04/12/22 04/12/22 15:58 15:58 WBC RBC Hgb Hct MCV MCH MCHC RDW Plt Count MPV Neut # (Auto) Lymph # (Auto) [place] # (Auto) Eos # (Auto) Baso # (Auto) Absolute Nucleated RBC Nucleated RBC % Sodium Potassium Chloride Carbon Dioxide Anion Gap BUN Creatinine Estimated GFR (MDRD) Glucose POC Whole Bld Glucose Estimat Average Glucose 223 H Hemoglobin A1c % 9.4 H Calcium Total Bilirubin AST ALT Alkaline Phosphatase Troponin I High Sens 11.0 Total Protein Albumin Globulin Albumin/Globulin Ratio Lipase - Rads (name of study) cxr Radiology: Final report received, See rad report (Mild cardiomegaly. No evidence of acute pulmonary process. ) PD Medical Decision Making - ED course Complexity details: reviewed results, re-evaluated patient, considered differential, d/w patient, d/w family ED course: 86-year-old female, well-appearing, nontoxic. Afebrile. No hypoxia. No respiratory distress. Upon review of her pharmacy records it appears that her metoprolol was filled for 100 mg tabs rather than her normal 25 mg tabs. Possible that she has been getting 4 times her normal dose, this would explain the mild bradycardia. Patient also has significant hyperglycemia, blood sugar around 350. Given insulin. Blood sugar did decrease. She is eating and drinking without difficulty. No vomiting. She did have some mild wheezing on repeat evaluation, given a breathing treatment and feels better. No hypoxia. No indication for admission at this time. Patient would like to go home. We will have the family hold her metoprolol and see if this resolves her dizziness. Patient will also monitor her blood sugar at home. Recommend that they follow- up closely with her doctor for medication adjustments. Patient and family counseled regarding signs and symptoms for which I believe and urgent re- evaluation would be necessary. Patient with good understanding of and agreement to plan and is comfortable going home at this time This document was made in part using voice recognition software. While efforts are made to proofread this document, sound alike and grammatical errors may occur. Departure - Departure Disposition: 01 Home, Self Care Clinical Impression: Hyperglycemia, Bradycardia, Wheezing Condition: Good Instructions: ED Wheezing, ED Hyperglycemia Diabetic Follow-Up: Yee Cullen ARNP [Primary Care Provider] - Within 3 Days Prescriptions: Albuterol Sulf [Ventolin Hfa Inhaler] 1 - 2 puffs INH Q4HR PRN #1 each PRN Reason: Shortness Of Air/Wheezing Comments: Please follow-up with your doctor for further care. Please stop the metoprolol, do not take it tonight or tomorrow night. It appears that you were accidentally prescribed 100 mg of metoprolol rather than 12.5 mg. On Friday night, you can resume your metoprolol at the usual 12.5 mg dosage. Please throw away the 100 mg bottles. You also need to be monitoring your blood sugar at home, please contact your doctor to ensure that you get a glucose monitor so you can check your blood sugar. I have sent a prescription for albuterol to the pharmacy for you. Your prescription was sent to [facility] in [place]. Discharge Date/Time: 04/12/22 20:00
--- NOTE | 2022-04-12 16:33 | XRAY Report ---
PROCEDURE: Chest 1 View X-Ray INDICATIONS: Chest pain TECHNIQUE: One view of the chest was acquired. COMPARISON: 07/23/2021. FINDINGS: Surgical changes and devices: None. Lungs and pleura: No pleural effusions or pneumothorax. Lungs are clear. Mediastinum: Mediastinal contours appear normal. Mild cardiomegaly. Bones and chest wall: No suspicious bony lesions. Overlying soft tissues appear unremarkable. IMPRESSION: Mild cardiomegaly. No evidence of acute pulmonary process. Reviewed by: Tito Quigley MD on 04/12/2022 4:32 PM PST Approved by: Tito Quigley MD on 04/12/2022 4:32 PM PST Station ID: [id number]
[2022-04-12 16:41] LABS: ALBUMIN 4.1 g/dL (3.2-5.5); ALBUMIN/GLOBULIN RATIO 1.2 (1.0-2.2); BILIRUBIN,TOTAL 0.7 mg/dL (0.2-1.0); CALCIUM 8.7 mg/dL (8.5-10.3); CREATININE 1.2 mg/dL (0.4-1.0); POTASSIUM 5.1 mmol/L (3.5-5.0); TOTAL PROTEIN 7.4 g/dL (6.7-8.2)
[2022-04-12] MEDS ORDERED: SODIUM CHLORIDE 0.9% 1,000 ML IV STA (16:46)
[2022-04-12] MEDS ORDERED: SODIUM CHLORIDE 0.9% 500 ML IV STA (16:46)
[2022-04-12] MEDS ORDERED: INSULIN REGULAR HUMAN 100 UNIT/1 ML 10 ML MDV SUBQ STA (16:47)
[2022-04-12] MEDS ORDERED: ALBUTEROL NEB 2.5 MG/3 ML INH STA (18:56)
[2022-04-12] MEDS ORDERED: ALBUTEROL NEB 2.5 MG/3 ML INH ONE (19:11)
[2022-04-12 20:11] VITALS: BP 127/64
[2022-04-12 20:20] LABS: ESTIMATED AVERAGE GLUCOSE 223 mg/dL (70-100); HEMOGLOBIN A1c% 9.4 % (4.27-6.07)
== END 2022-04-12 20:00 | disposition home or self-care (01) ==
LOC: ED 15:27
DX: E11.65 Type 2 diabetes mellitus with hyperglycemia (principal); Z79.84 Long term (current) use of oral hypoglycemic drugs; R06.2 Wheezing; R00.1 Bradycardia, unspecified
CPT/HCPCS: 36415; 71045; 80053; 83036; 83690; 84484; 85025; 93005; 94640; 96360; 99284; J1815

== ENCOUNTER 2022-06-16 14:43 | Outpatient (CLI) | payer MEDICARE, MEDICAID | END 2022-06-16 23:59 | disposition short-term general hospital (02) | LOC: EMS 14:43 | DX: R00.1 Bradycardia, unspecified (principal); R51.9 Headache, unspecified; R53.83 Other fatigue | CPT/HCPCS: A0425; A0427 ==

== ENCOUNTER 2022-06-23 15:37 | Emergency (ER) | payer MEDICARE, MEDICAID ==
--- NOTE | 2022-06-23 16:08 | ED Physician Documentation ---
PD HPI URI - Stated complaint Stated Complaint: SORE THROAT, COUGH - Chief complaint Chief Complaint: Heent - History obtained from History obtained from: Patient, Family - Additional information Additional information: 87-year-old female presents with mild cough, Mild sore throat and a runny nose. Entire family in the household has similar cold symptoms. No known fever, no chest pain or difficulty breathing. Patient concerned because she did have a pacemaker placement about 6 days ago and was concerned all the coughing could cause complications. She has been taking 1 g to 1500 mg of Tylenol a day and using cough drops with some relief. Family mainly concerned that this could be COVID though everyone else in the household has taken COVID testing x2 which were negative. Review of Systems Constitutional: reports: Reviewed and negative Nose: reports: Rhinorrhea / runny nose. denies: Congestion Throat: reports: Sore throat (Mild scratchy throat). denies: Swollen tonsils Cardiac: reports: Reviewed and negative Respiratory: reports: Cough. 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 - Present Medications Home Medications: Ambulatory Orders Medication Instructions Recorded Confirmed Metformin HCl 1,000 mg PO BID 10/28/12 06/23/22 Simvastatin [Zocor] 10 mg PO QPM 10/28/12 06/23/22 Metoprolol Succinate [Toprol Xl] 12.5 mg PO DAILY PM 06/02/17 06/23/22 Furosemide [Lasix] 20 mg PO DAILY #5 tablet 03/11/20 06/23/22 Potassium Chloride 20 meq PO DAILY #5 tablet.er 03/11/20 06/23/22 Albuterol Sulf [Ventolin Hfa 1 - 2 puffs INH Q4HR PRN #1 each 04/12/22 06/23/22 Inhaler] Flecainide Acetate 50 mg PO BID 04/12/22 06/23/22 Apixaban [Eliquis] 5 mg PO BID 06/23/22 06/23/22 Famotidine 40 mg PO DAILY 06/23/22 06/23/22 - Allergies Allergies/Adverse Reactions: Allergies Allergy/AdvReac Type Severity Reaction Status Date / Time contrast dye Allergy Rash Uncoded 06/23/22 15:50 seasonal Allergy Unknown Uncoded 06/23/22 15:50 - Social History Does the pt smoke?: No Smoking Status: Never smoker Does the pt drink ETOH?: No Does the pt have substance abuse?: No - Immunizations Immunizations are current?: No Immunizations: TDAP >10years/unknown - POLST Patient has POLST: No Results - Vitals Vitals: Vital Signs - 24 hr 06/23/22 15:46 Temperature 36.0 C L Heart Rate 65 Respiratory 17 Rate Blood Pressure 158/68 H O2 Saturation 97 Oxygen O2 Source Room air - Labs Labs: Laboratory Tests 06/23/22 16:20 Nasal Adenovirus (PCR) NOT DETECTED Nasal B. parapertussis DNA (PCR) NOT DETECTED Nasal Coronavir 229E PCR NOT DETECTED Nasal Coronavir HKU1 PCR NOT DETECTED Nasal Coronavir NL63 PCR NOT DETECTED Nasal Coronavir OC43 PCR NOT DETECTED Nasal Enterovir/Rhinovir PCR NOT DETECTED Nasal Influenza B PCR NOT DETECTED Nasal Influenza A PCR NOT DETECTED Nasal Parainfluen 1 PCR NOT DETECTED Nasal Parainfluen 2 PCR DETECTED A Nasal Parainfluen 3 PCR NOT DETECTED Nasal Parainfluen 4 PCR NOT DETECTED Nasal RSV (PCR) NOT DETECTED Nasal B.pertussis DNA PCR NOT DETECTED Nasal C.pneumoniae (PCR) NOT DETECTED Chepe Human Metapneumo PCR NOT DETECTED Nasal M.pneumoniae (PCR) NOT DETECTED Nasal SARS-CoV-2 (PCR) NOT DETECTED PD Medical Decision Making - ED course Complexity details: reviewed results, re-evaluated patient, considered differential, d/w patient, d/w family ED course: 87-year-old female presents with viral upper respiratory infection symptoms. Her symptoms are mild however family and patient were concerned as she recently had a pacemaker placed. The pacemaker site is healing well and patient is otherwise doing well. We obtained a chest x-ray which shows no pneumonia or other acute findings. Her viral panel is significant for parainfluenza virus which is likely the cause of her symptoms. I provided patient family with information and recommended supportive measures as well as discussed return precautions. Patient stable for discharge home at this time, return precautions reviewed in detail. Departure - Departure Disposition: , Self Care Clinical Impression: Viral upper respiratory illness Condition: Good Instructions: ED Viral Syndrome Comments: You tested positive for parainfluenza virus. This is a common cold virus that causes cough or nasal congestion and sore throat. Sometimes you can have mild fever and body aches with it. Continue Tylenol as needed, you can try [id number] cough drops or throat sprays for your cough and sore throat. Try to stay well-hydrated. This should not cause any complications with your pacemaker but if you have new or worsening symptoms, return to the ER.
--- NOTE | 2022-06-23 16:35 | XRAY Report ---
PROCEDURE: Chest 1 View X-Ray INDICATIONS: chest pain TECHNIQUE: One view of the chest was acquired. COMPARISON: 04/12/2022, 07/23/2021 FINDINGS: Surgical changes and devices: A pacer device can be seen. The leads are seen in the expected positio ns. Lungs and pleura: No pleural effusions or pneumothorax. Lungs are clear. Mediastinum: The aorta is prominent and tortuous. The cardiac contours are within normal limits. Bones and chest wall: No suspicious bony lesions. Age-appropriate degenerative changes are seen. Overlying soft tissues appear unremarkable. IMPRESSION: Stable portable chest, without a cause of chest pain identified. Reviewed by: Costa Otero MD on 06/23/2022 3:34 PM [facility] Approved by: Costa Otero MD on 06/23/2022 3:34 PM [facility] Station ID: [id number]
[2022-06-23 17:15] LABS: B. PARAPERTUSSIS- RESP PCR PAN NOT DETECTED; B. PERTUSSIS- RESP PCR PANEL NOT DETECTED; C. PNEUMONIAE- RESP PCR PANEL NOT DETECTED; CORONAVIRUS 229E-RESP PCR NOT DETECTED; CORONAVIRUS HKU1-RESP PCR NOT DETECTED; CORONAVIRUS NL63-RESP PCR NOT DETECTED; CORONAVIRUS OC43-RESP PCR NOT DETECTED; HUMAN METAPNEUMOVIRUS NOT DETECTED; INFLUENZA A- RESP PCR PANEL NOT DETECTED; INFLUENZA B - RESP PCR PANEL NOT DETECTED; M. PNEUMONIAE- RESP PCR PANEL NOT DETECTED; PARAINFLUENZA VIRUS 1 NOT DETECTED; PARAINFLUENZA VIRUS 2 DETECTED; PARAINFLUENZA VIRUS 3 NOT DETECTED; PARAINFLUENZA VIRUS 4 NOT DETECTED; RHINOVIRUS/ENTEROVIRUS NOT DETECTED; RSV- RESP PCR PANEL NOT DETECTED; SARS-CoV-2 -RESP PCR PANEL NOT DETECTED
[2022-06-23 17:28] VITALS: BP 148/76
== END 2022-06-23 17:44 | disposition home or self-care (01) ==
LOC: ED 15:37
DX: J06.9 Acute upper respiratory infection, unspecified (principal); B34.8 Other viral infections of unspecified site; Z20.822 Contact with and (suspected) exposure to COVID-19
CPT/HCPCS: 87633; 99283; 99284

== ENCOUNTER 2022-07-16 14:08 | Outpatient (CLI) | payer MEDICARE, MEDICAID | END 2022-07-16 14:09 | disposition EMS.NT | LOC: EMS 14:08 | DX: I10 Essential (primary) hypertension (principal) ==

== ENCOUNTER 2022-07-21 11:52 | Emergency (ER) | payer MEDICARE, MEDICAID ==
[2022-07-21 12:05] VITALS: BP 197/94
[2022-07-21] MEDS ORDERED: LIDOCAINE PATCH 5% TOP STA (12:25)
--- NOTE | 2022-07-21 13:16 | ED Physician Documentation ---
History of Present Illness - Stated complaint Stated Complaint: FALL/HIP PX - Chief complaint Chief Complaint: Trauma Ext - History obtained from History obtained from: Patient, Family (Patient's daughter) - Additonal information Additional information: Patient is an 87-year-old female on Eliquis presenting for evaluation of low back and buttock pain since falling 5 days ago. Patient was in the kitchen and fell when she was backing away from the sink landing on her buttocks. She denies hitting her head or having LOC.Her daughter states that they called EMS to help with a lift assist And to have her evaluated.They were able to get her up and she was able to ambulate and they declined transport. She has been using a gram of Tylenol every 8 hours which has been helping with her pain. However daughter reports that once the Tylenol wears off she has pain again so they wanted to get her evaluated. Patient has otherwise been acting appropriately with no headache, no chest pain, no shortness of breath or abdominal symptoms. Review of Systems Constitutional: denies: Fever Cardiac: denies: Chest pain / pressure Respiratory: denies: Dyspnea GI: denies: Abdominal Pain, Vomiting Musculoskeletal: reports: Back pain. 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 - Present Medications Home Medications: Ambulatory Orders Medication Instructions Recorded Confirmed Metformin HCl 1,000 mg PO BID 10/28/12 06/23/22 Simvastatin [Zocor] 10 mg PO QPM 10/28/12 06/23/22 Metoprolol Succinate [Toprol Xl] 12.5 mg PO DAILY PM 06/02/17 06/23/22 Furosemide [Lasix] 20 mg PO DAILY #5 tablet 03/11/20 06/23/22 Potassium Chloride 20 meq PO DAILY #5 tablet.er 03/11/20 06/23/22 Albuterol Sulf [Ventolin Hfa 1 - 2 puffs INH Q4HR PRN #1 each 04/12/22 06/23/22 Inhaler] Flecainide Acetate 50 mg PO BID 04/12/22 06/23/22 Apixaban [Eliquis] 5 mg PO BID 06/23/22 06/23/22 Famotidine 40 mg PO DAILY 06/23/22 06/23/22 Lidocaine Patch 5% [Lidoderm Patch] 1 patch TOP DAILY PRN #10 patch 07/21/22 - Allergies Allergies/Adverse Reactions: Allergies Allergy/AdvReac Type Severity Reaction Status Date / Time contrast dye Allergy Rash Uncoded 07/21/22 12:05 seasonal Allergy Unknown Uncoded 07/21/22 12:05 - Social History Does the pt smoke?: No Smoking Status: Never smoker Does the pt drink ETOH?: No Does the pt have substance abuse?: No - Immunizations Immunizations are current?: No Immunizations: TDAP >10years/unknown - POLST Patient has POLST: No PD ED PE NORMAL - General General: Alert and oriented X 3, No acute distress, Well developed/nourished - HEENT HEENT: Atraumatic - Neck Neck: Supple, no meningeal sign - Cardiac Cardiac: RRR, No murmur, Other (Well-healing incision to left chest wall from recent pacemaker Implantation) - Respiratory Respiratory: No respiratory distress, Clear bilaterally - Abdomen Abdomen: Normal bowel sounds, Soft, Non tender, Non distended - Back Back: Other (Mild low lumbar tenderness to palpation, no step-offs, no erythema or swelling) - Derm Derm: Warm and dry - Extremities Extremities: No deformity, Other (Normal range of motion of bilateral hips) - Neuro Neuro: Alert and oriented X 3, director process 2-12 intact, No motor deficit, No sensory deficit, Normal speech Eye Opening: Spontaneous Motor: Obeys Commands Verbal: Oriented GCS Score: 15 Results - Vitals Vitals: Vital Signs - 24 hr 07/21/22 11:59 Temperature 36.7 C Heart Rate 60 Respiratory 16 Rate Blood Pressure 197/94 H O2 Saturation 98 Oxygen O2 Source Room air PD Medical Decision Making - ED course Complexity details: reviewed results, re-evaluated patient, d/w patient, d/w family ED course: Patient presenting for evaluation of low back pain for the past 5 days since having a fall at home. Patient usually uses a walker and was not using it in the kitchen when she missed stepped and fell backwards landing on her buttocks. She did not hit her head. She is on Eliquis.She is no significant bruising on exam and is neurovascular intact with a normal neuro exam. CT scan of the lumbar spine was obtained which I also reviewed and see no signs of an acute fracture. She does have signs of some chronic injuries. She is doing better with Tylenol and lidocaine patch and is able to ambulate here. She is counseled on need for close follow-up with her PCP as well as concerning symptoms to return for. Departure - Departure Disposition: 01 Home, Self Care Clinical Impression: Lower back injury Condition: Stable Instructions: ED Low Back Pain Injury Prescriptions: Lidocaine Patch 5% [Lidoderm Patch] 1 patch TOP DAILY PRN #10 patch PRN Reason: pain Comments: Your CT scan does not show any broken bones related to your fall. You do have degenerative changes in your spine especially at the L4-L5 level. Please continue with lidocaine patches which I have sent a prescription for to [facility] in [place]. I would also continue with acetaminophen 1000 mg every 8 hours as needed for pain. I would call your primary care on Friday for close outpatient follow-up.These take caution when moving around to make sure you are using your walker. Return to the emergency department if you develop any new symptoms. Discharge Date/Time: 07/21/22 15:01
--- NOTE | 2022-07-21 13:41 | CT Report ---
PROCEDURE: LUMBAR SPINE WO INDICATIONS: fall 5 days ago/on eliquis TECHNIQUE: Noncontrast 3 mm thick sections acquired from the T12 level to the sacrum. Sagittal and coronal refo rmats were constructed. For radiation dose reduction, the following was used: automated exposure co ntrol, adjustment of mA and/or kV according to patient size. COMPARISON: Correlation is made with prior abdomen and pelvis CT, 11/19/2017 FINDINGS: Image quality: Excellent. Bones: There is a T12 anterior deformity, which is not progressed compared to 2019. There is partial visualization of a fracture at the inferior aspect of T11, which is likely also chronic. No suspicious lytic or blastic bony lesions. No pars defects. Minimal anterolisthesis is seen at the L3-L4 level. Grade 1 anterolisthesis is seen at L4-L5. No asso ciated pars defects are seen. Minimal anterolisthesis is seen at L5-S1. T12-L1: Mild loss of disc height is seen. Moderate disc bulge is seen, which is eccentric to the lef t. There is at least moderate left-sided and moderate right-sided neuroforaminal narrowing. Mild jagdish tral canal narrowing is seen. L1-L2: The disc height is well-preserved. Mild to moderate disc bulge is seen. Moderate bilateral neural foraminal narrowing is seen. Mild central canal narrowing is seen. L2-L3: Mild loss of disc height is seen. Moderate disc bulge is seen, with a central disc osteophy te protrusion. Mild facet hypertrophy is seen. There is at least moderate bilateral neuroforaminal n arrowing seen. At least moderate central canal narrowing is seen. L3-L4: Mild loss of disc height is seen. Moderate disc bulge is seen, which is eccentric to the lef t. There is moderate right-sided and syuv-vj-pnvkqyqx left-sided facet hypertrophy. There is at least moderate bilateral neuroforaminal narrowing seen. At least moderate central canal narrowing is seen. L4-L5: Moderate loss of disc height is seen. Moderate disc bulge is seen at this level. A superimp osed central disc protrusion is seen. Moderate to prominent facet hypertrophy can be seen. There is a t least moderate bilateral neuroforaminal narrowing. Moderate to severe central canal narrowing is se en. L5-S1: The disc height is relatively well preserved. Moderate disc bulge is seen at this level. Radha dging endplate osteophytes are seen, which are worst on the left side. Moderate facet hypertrophy is seen. Mild to moderate bilateral neuroforaminal narrowing can be seen. Mild to moderate central alex l narrowing is seen. Soft tissues: No retroperitoneal masses or hematomas. Visualized aorta is normal in caliber. Ather osclerotic calcification is seen. Diverticulosis can be seen, without kelsea findings of active divert iculitis. IMPRESSION: No definite, acute fractures are seen. There is a T12 fracture, which is similar to 2018. A fracture is seen at the inferior endplate of T11, which is also believed to be chronic. However, please correl ate with focal tenderness. Degenerative changes are seen throughout, which are overall worst at the L4-L5 level. If it would be helpful for clinical management decision making, please consider a dedicated, schedule d lumbar MRI for further evaluation (assuming that there is no contraindication). Additional findings: Diverticulosis, without findings of active diverticulitis. Reviewed by: Costa Otero MD on 07/21/2022 12:40 PM KELSI Approved by: Costa Otero MD on 07/21/2022 12:40 PM KELSI Station ID: [id number]
[2022-07-21] MEDS ORDERED: ACETAMINOPHEN 325 MG TABLET PO STA (14:40)
== END 2022-07-21 15:01 | disposition home or self-care (01) ==
LOC: ED 11:52
DX: S39.92XA Unspecified injury of lower back, initial encounter (principal); W18.30XA Fall on same level, unspecified, initial encounter; Y92.000 Kitchen of unspecified non-institutional (private) residence as the place of occurrence of the external cause; I10 Essential (primary) hypertension; E11.9 Type 2 diabetes mellitus without complications; E78.00 Pure hypercholesterolemia, unspecified; Z79.84 Long term (current) use of oral hypoglycemic drugs; Z79.899 Other long term (current) drug therapy; Z79.01 Long term (current) use of anticoagulants
CPT/HCPCS: 72131; 99283; 99284; A9270

== ENCOUNTER 2022-10-08 14:54 | Outpatient (CLI) | payer MEDICARE, MEDICAID ==
[2022-10-08 18:04] LABS: BASOPHILS # (AUTO) 0.1 10^3/uL (0.0-0.1); BASOPHILS % (AUTO) 0.9 %; EOSINOPHILS # (AUTO) 0.4 10^3/uL (0.0-0.7); EOSINOPHILS % (AUTO) 5.6 %; HCT - HEMATOCRIT 38.6 % (37.0-47.0); LYMPHOCYTES # (AUTO) 2.6 10^3/uL (1.5-3.5); LYMPHOCYTES % (AUTO) 38.5 %; MEAN CORPUSCULAR HEMOGLOBIN 30.2 pg (27.0-31.0); MEAN CORPUSCULAR HGB CONC 31.1 g/dL (32.0-36.0); MEAN PLATELET VOLUME 9.4 fL (7.9-10.8); MONOCYTES # (AUTO) 0.7 10^3/uL (0.0-1.0); MONOCYTES % (AUTO) 10.1 %; NEUTROPHILS % (AUTO) 44.6 %; PLT - PLATELET COUNT 322 10^3/uL (130-450); RED BLOOD COUNT 3.98 10^6/uL (4.20-5.40); RED CELL DISTRIBUTION WIDTH 12.4 % (12.0-15.0); WHITE BLOOD COUNT 6.8 x10^3/uL (4.8-10.8)
[2022-10-08 18:09] LABS: ALBUMIN 5.1 g/dL (3.2-5.5); ALBUMIN/GLOBULIN RATIO 1.5 (1.0-2.2); ALKALINE PHOSPHATASE 69 IU/L (42-121); ALT ALANINE AMINOTRANSFERASE 16 IU/L (10-60); AST ASPARTATE AMINOTRANSFERASE 28 IU/L (10-42); BILIRUBIN,TOTAL 0.7 mg/dL (0.2-1.0); BUN - BLOOD UREA NITROGEN 16 mg/dL (6-20); CALCIUM 9.7 mg/dL (8.5-10.3); CARBON DIOXIDE - CO2 26 mmol/L (21-32); CHLORIDE 97 mmol/L (101-111); CHOL/HDL RATIO 2.4 (<4.4); CHOLESTEROL 151 mg/dL; CREATININE 1.2 mg/dL (0.4-1.0); GFR - MDRD 42 (>89); GLUCOSE 114 mg/dL (70-100); HDL CHOLESTEROL 64 mg/dL; LDL CHOLESTEROL,CALCULATED 50 mg/dL; LDL/HDL RATIO 0.8 (<4.4); POTASSIUM 4.5 mmol/L (3.5-5.0); SODIUM 133 mmol/L (135-145); TOTAL PROTEIN 8.6 g/dL (6.7-8.2); TRIGLYCERIDES 184 mg/dL; VLDL CHOLESTEROL 37 mg/dL
[2022-10-08 18:22] LABS: THYROID STIMULATING HORMONE 1.78 uIU/mL (0.34-5.60)
[2022-10-08 21:18] LABS: ESTIMATED AVERAGE GLUCOSE 146 mg/dL (70-100); HEMOGLOBIN A1c% 6.7 % (4.27-6.07)
== END 2022-10-08 14:55 | disposition home or self-care (01) ==
LOC: LAB.N 14:54
PROVIDERS: ATTEND Nurse Practitioner Family
DX: E11.22 Type 2 diabetes mellitus with diabetic chronic kidney disease (principal); E78.5 Hyperlipidemia, unspecified
CPT/HCPCS: 36415; 80053; 80061; 83036; 83721; 84443; 85025

== ENCOUNTER 2023-01-22 15:49 | Outpatient (CLI) | payer MEDICARE, MEDICAID ==
--- NOTE | 2023-01-22 17:18 | XRAY Report ---
PROCEDURE: Knee 3 View RT INDICATIONS: PAIN IN RIGHT KNEE TECHNIQUE: 3 views of the right knee(s) were acquired. COMPARISON: None. FINDINGS: Bones: No acute fractures or dislocations. No suspicious bony lesions. Postsurgical changes of righ t total knee arthroplasty without evidence for hardware loosening or failure. Soft tissues: No substantial knee joint effusion. No suspicious soft tissue calcifications or masses . There are vascular calcifications. IMPRESSION: Status post right total knee arthroplasty without evidence for hardware complication. No acute fractu re or dislocation identified. Reviewed by: Bayron Lane MD on 01/22/2023 5:17 PM PDT Approved by: Bayron Lane MD on 01/22/2023 5:17 PM PDT Station ID: [id number]
== END 2023-01-22 15:50 | disposition home or self-care (01) ==
LOC: DI 15:49
PROVIDERS: ATTEND Physician Assistant Medical
DX: M25.561 Pain in right knee (principal); Z96.651 Presence of right artificial knee joint

== ENCOUNTER 2023-02-26 09:50 | Outpatient (CLI) | payer MEDICARE | END 2023-02-26 09:51 | disposition critical access hospital (66) | LOC: EMS 09:50 | DX: M79.604 Pain in right leg (principal); M25.551 Pain in right hip | CPT/HCPCS: A0425; A0427 ==

== ENCOUNTER 2023-02-26 10:20 | Emergency (ER) | payer MEDICAID, MEDICARE ==
[2023-02-26] MEDS ORDERED: MORPHINE 2 MG/ML CARPUJECT IVP STA (12:09)
--- NOTE | 2023-02-26 12:12 | ED Physician Documentation ---
History of Present Illness - Stated complaint Stated Complaint: R LEG PX - Chief complaint Chief Complaint: Ext Problem - History obtained from History obtained from: Patient, Family - History of Present Illness Pain level max: 8 Pain level now: 8 - Additonal information Additional information: Patient is an 87-year-old female who presents to the emergency department with right hip and right knee pain x 1 month. She went to the walk-in clinic 1 month ago and had an x-ray of the right knee. The x-ray was read as normal. She states that has continued to hurt since that time. Has not made an attempt to contact her PCP or follow-up since that time. She took Tylenol without relief at home. No falls. No trauma. No swelling. No redness. No numbness or tingling. Worse with movement, nothing makes it better. Has a history of a remote right knee replacement. 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 - Present Medications Home Medications: Ambulatory Orders Medication Instructions Recorded Confirmed Metformin HCl 1,000 mg PO BID 10/28/12 06/23/22 Simvastatin [Zocor] 10 mg PO QPM 10/28/12 06/23/22 Metoprolol Succinate [Toprol Xl] 12.5 mg PO DAILY PM 06/02/17 06/23/22 Furosemide [Lasix] 20 mg PO DAILY #5 tablet 03/11/20 06/23/22 Potassium Chloride 20 meq PO DAILY #5 tablet.er 03/11/20 06/23/22 Albuterol Sulf [Ventolin Hfa 1 - 2 puffs INH Q4HR PRN #1 each 04/12/22 06/23/22 Inhaler] Flecainide Acetate 50 mg PO BID 04/12/22 06/23/22 Apixaban [Eliquis] 5 mg PO BID 06/23/22 06/23/22 Famotidine 40 mg PO DAILY 06/23/22 06/23/22 Lidocaine Patch 5% [Lidoderm Patch] 1 patch TOP DAILY PRN #10 patch 07/21/22 oxyCODONE [Roxicodone] 2.5 - 5 mg PO Q6H PRN #14 tablet 02/26/23 MDD 6 - Allergies Allergies/Adverse Reactions: Allergies Allergy/AdvReac Type Severity Reaction Status Date / Time contrast dye Allergy Rash Uncoded 07/21/22 12:05 seasonal Allergy Unknown Uncoded 07/21/22 12:05 - Social History Does the pt smoke?: No Smoking Status: Never smoker Does the pt drink ETOH?: No Does the pt have substance abuse?: No - Immunizations Immunizations are current?: No Immunizations: TDAP >10years/unknown - POLST Patient has POLST: No PD ED PE NORMAL - Vitals Vital signs reviewed: Yes - General General: Alert and oriented X 3, No acute distress - HEENT HEENT: Moist mucous membranes - Neck Neck: Supple, no meningeal sign - Cardiac Cardiac: RRR, Strong equal pulses - Respiratory Respiratory: No respiratory distress, Clear bilaterally - Abdomen Abdomen: Soft, Non tender, Non distended - Back Back: No CVA TTP, No spinal TTP - Derm Derm: Warm and dry - Extremities Extremities: Other (Limited range of motion of the right hip secondary to pain. Patient yells with any movement of the hip. No swelling. No tenderness directly over the hip. No calf tenderness or cord. Neurovascular intact. No swelling about the knee.) - Neuro Neuro: Alert and oriented X 3 - Psych Psych: Normal mood, Normal affect Results - Vitals Vitals: Vital Signs - 24 hr 02/26/23 02/26/23 10:23 12:57 Temperature 36.8 C Heart Rate 86 65 Respiratory 20 17 Rate Blood Pressure 184/86 H 169/90 H O2 Saturation 95 95 Oxygen O2 Source Room air PD Medical Decision Making - ED course Complexity details: reviewed results, re-evaluated patient, considered di fferential, d/w patient ED course: Patient was given a dose of morphine and pain resolved. She does have some pain over the iliotibial band on the right thigh. Most of the pain is up near the hip, suspect arthritis and inflammation. Will place her on a small amount of pain medication for home. Recommend she use a walker to help take pressure off of the hip, recommend physical therapy and possible orthopedic referral from her primary. No evidence of septic joint. No evidence of occult fracture. No falls. No trauma. No fevers. No chills. No back pain. No evidence of cauda equina or epidural abscess. No focal neurological deficits. Ambulating well. Patient and family counseled regarding signs and symptoms for which I believe and urgent re-evaluation would be necessary. Patient with good understanding of and agreement to plan and is comfortable going home at this time This document was made in part using voice recognition software. While efforts are made to proofread this document, sound alike and grammatical errors may occur. Departure - Departure Disposition: 01 Home, Self Care Clinical Impression: Hip pain, right Condition: Good Instructions: ED Degenerative Joint Disease Follow-Up: Yee Cullen ARNP [Provider Admit Priv/Credential] - Within 1 week Prescriptions: oxyCODONE [Roxicodone] 2.5 - 5 mg PO Q6H PRN #14 tablet MDD 6 PRN Reason: pain Comments: Your prescription's were sent to [facility] in [place]. You can use the pain medication 1/2 to 1 tablet as needed for pain. Continue to use her walker as w ell. Your x-ray does not show any acute abnormalities. Your doctor may want to refer you to physical therapy or to an orthopedist to have your hip further evaluated. I am prescribing a short course of narcotic pain medication for you. These are potentially dangerous and addictive medications that should be used carefully. These medications may constipate you. Take an hraj-fir-ezdtnub stool softener (docusate) twice daily with plenty of water while taking these medications. If you go 24 hours without a bowel movement, take gtzy-qnb-tbywtkb miralax, per package instructions. Do not drink or drive while taking these medications. If you received narcotic or sedating medications while in the emergency department, do not drive for 24 hours. Store this medication in a safe, secure place and out of reach of children. It is a violation of federal law to give or sell this medication to another person or to use in a manner other than prescribed. The ED will not refill narcotic prescriptions, including prescriptions lost or stolen. To dispose of unwanted medications: 1. [facility] at [address] in [place] has a medication drop box. They accept prescription medications (in pill form) Friday through Friday 9:00 a.m. to 5:00 p.m. 2. [facility] accepts prescription medications (in pill form only) for disposal year round. Call for more information. 3. Contact the [facility] for the next [facility] sponsored prescription drug collection event. , [phone], or [phone]; Forms: PCP List
[2023-02-26 13:01] VITALS: BP 169/90
--- NOTE | 2023-02-26 13:08 | XRAY Report ---
PROCEDURE: Hip w/Pelvis 2-3V RT INDICATIONS: R hip pain x 1 month no trauma TECHNIQUE: AP pelvis with lateral view(s) of the right hip(s). COMPARISON: None. FINDINGS: Bones: No fractures or dislocations. No suspicious bony lesions. Soft tissues: No suspicious soft tissue calcifications or masses. IMPRESSION: No acute fracture. No osseous lesion. If symptoms and/or clinical suspicion for pathology continue, f urther assessment with repeat plain films, or advanced imaging (e.g., CT, MRI, or bone scan) is recom mended for further assessment. Reviewed by: Amaris Zacarias MD on 02/26/2023 1:07 PM PST Approved by: Amaris Zacarias MD on 02/26/2023 1:07 PM PST Station ID: [id number]
[2023-02-26] MEDS ORDERED: oxyCODONE 5 MG TABLET PO STA (13:37)
[2023-02-26 14:28] VITALS: O2SAT 96
== END 2023-02-26 14:22 | disposition home or self-care (01) ==
LOC: EDUNIT# → ED 10:20
DX: M25.551 Pain in right hip (principal); I10 Essential (primary) hypertension; E11.9 Type 2 diabetes mellitus without complications; Z79.84 Long term (current) use of oral hypoglycemic drugs
CPT/HCPCS: 73502; 96374; 99283; A9270

== ENCOUNTER 2023-06-03 07:05 | Outpatient (CLI) | payer MEDICARE, MEDICAID ==
[2023-06-03 12:27] LABS: BASOPHILS # (AUTO) 0.1 10^3/uL (0.0-0.1); EOSINOPHILS # (AUTO) 0.4 10^3/uL (0.0-0.7); EOSINOPHILS % (AUTO) 5.2 %; HCT - HEMATOCRIT 37.1 % (37.0-47.0); HGB - HEMOGLOBIN 11.8 g/dL (12.0-16.0); LYMPHOCYTES # (AUTO) 2.3 10^3/uL (1.5-3.5); LYMPHOCYTES % (AUTO) 34.3 %; MEAN CORPUSCULAR HEMOGLOBIN 30.9 pg (27.0-31.0); MEAN CORPUSCULAR HGB CONC 31.8 g/dL (32.0-36.0); MEAN CORPUSCULAR VOLUME 97.1 fL (81.0-99.0); MEAN PLATELET VOLUME 9.4 fL (7.9-10.8); MONOCYTES # (AUTO) 0.8 10^3/uL (0.0-1.0); MONOCYTES % (AUTO) 11.4 %; NEUTROPHILS # (AUTO) 3.2 10^3/uL (1.5-6.6); NEUTROPHILS % (AUTO) 47.8 %; PLT - PLATELET COUNT 325 10^3/uL (130-450); RED BLOOD COUNT 3.82 10^6/uL (4.20-5.40); RED CELL DISTRIBUTION WIDTH 12.9 % (12.0-15.0); WHITE BLOOD COUNT 6.7 x10^3/uL (4.8-10.8)
[2023-06-03 12:33] LABS: ALBUMIN 4.6 g/dL (3.2-5.5); ALBUMIN/GLOBULIN RATIO 1.4 (1.0-2.2); ALKALINE PHOSPHATASE 58 IU/L (42-121); ALT ALANINE AMINOTRANSFERASE 12 IU/L (10-60); AST ASPARTATE AMINOTRANSFERASE 20 IU/L (10-42); BILIRUBIN,TOTAL 0.5 mg/dL (0.2-1.0); BUN - BLOOD UREA NITROGEN 17 mg/dL (6-20); CALCIUM 10.1 mg/dL (8.5-10.3); CARBON DIOXIDE - CO2 29 mmol/L (21-32); CHLORIDE 98 mmol/L (101-111); CHOL/HDL RATIO 1.9 (<4.4); CHOLESTEROL 119 mg/dL; GFR - MDRD 52 (>89); GLUCOSE 112 mg/dL (74-104); HDL CHOLESTEROL 62 mg/dL; LDL CHOLESTEROL,CALCULATED 33 mg/dL; LDL/HDL RATIO 0.5 (<4.4); SODIUM 134 mmol/L (135-145); TOTAL PROTEIN 7.9 g/dL (6.4-8.9); TRIGLYCERIDES 120 mg/dL (48-352); VLDL CHOLESTEROL 24 mg/dL
[2023-06-03 12:34] LABS: ESTIMATED AVERAGE GLUCOSE 134 mg/dL (70-100); HEMOGLOBIN A1c% 6.3 % (4.27-6.07)
[2023-06-03 12:56] LABS: THYROID STIMULATING HORMONE 1.99 uIU/mL (0.34-5.60)
== END 2023-06-03 07:06 | disposition home or self-care (01) ==
LOC: LAB.N 07:05
PROVIDERS: ATTEND Nurse Practitioner Family
DX: I13.0 Hypertensive heart and chronic kidney disease with heart failure and stage 1 through stage 4 chronic kidney disease, or unspecified chronic kidney disease (principal); E11.22 Type 2 diabetes mellitus with diabetic chronic kidney disease; N18.9 Chronic kidney disease, unspecified; D64.9 Anemia, unspecified; E78.5 Hyperlipidemia, unspecified
CPT/HCPCS: 36415; 80053; 80061; 83036; 83721; 84443; 85025

== ENCOUNTER 2023-09-21 11:32 | Outpatient (CLI) | payer MEDICARE, MEDICAID | END 2023-09-21 23:59 | disposition critical access hospital (66) | LOC: EMS 11:32 | DX: R06.03 Acute respiratory distress (principal); I50.9 Heart failure, unspecified | CPT/HCPCS: A0425; A0427 ==

== ENCOUNTER 2023-09-21 11:41 | Inpatient (IN) | payer MEDICARE, MEDICAID ==
--- NOTE | 2023-09-21 11:48 | ED Physician Documentation ---
PD HPI CHEST PAIN - Stated complaint Stated Complaint: SOA - History obtained from History obtained from: Patient - Additional information Additional information: She has a history of CHF and A-fib. Is on flecainide, metoprolol, and Lasix. This morning suddenly at 930 she developed significant shortness of breath. She has mild chest pain with this. She is brought in by ambulance for wound and respiratory distress with CPAP in place. Prehospital pressure approximately 230/115. Heart rate 60 and sinus. 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 - Present Medications Home Medications: Ambulatory Orders Medication Instructions Recorded Confirmed Metformin HCl 1,000 mg PO BID 10/28/12 06/23/22 Simvastatin [Zocor] 10 mg PO QPM 10/28/12 06/23/22 Metoprolol Succinate [Toprol Xl] 12.5 mg PO DAILY PM 06/02/17 06/23/22 Furosemide [Lasix] 20 mg PO DAILY #5 tablet 03/11/20 06/23/22 Potassium Chloride 20 meq PO DAILY #5 tablet.er 03/11/20 06/23/22 Albuterol Sulf [Ventolin Hfa 1 - 2 puffs INH Q4HR PRN #1 each 04/12/22 06/23/22 Inhaler] Flecainide Acetate 50 mg PO BID 04/12/22 06/23/22 Apixaban [Eliquis] 5 mg PO BID 06/23/22 06/23/22 Famotidine 40 mg PO DAILY 06/23/22 06/23/22 Lidocaine Patch 5% [Lidoderm Patch] 1 patch TOP DAILY PRN #10 patch 07/21/22 oxyCODONE [Roxicodone] 2.5 - 5 mg PO Q6H PRN #14 tablet 02/26/23 MDD 6 - Allergies Allergies/Adverse Reactions: Allergies Allergy/AdvReac Type Severity Reaction Status Date / Time contrast dye Allergy Rash Uncoded 09/21/23 11:52 seasonal Allergy Unknown Uncoded 09/21/23 11:52 - Social History Does the pt smoke?: No Smoking Status: Never smoker Does the pt drink ETOH?: No Does the pt have substance abuse?: No - Immunizations Immunizations are current?: No Immunizations: TDAP >10years/unknown - POLST Patient has POLST: No PD ED PE NORMAL - Vitals Vital signs reviewed: Yes - General General: Alert and oriented X 3, Other (She appears to be in some respiratory distress but it can speak. Loud rhonchorous wheezing at the bedside.) - Neck Neck: Supple, no meningeal sign, No bony TTP - Cardiac Cardiac: RRR, No murmur - Respiratory Respiratory: Other (Tachypneic with loud rhonchi throughout.) - Abdomen Abdomen: Non tender - Extremities Extremities: No calf tenderness / cord, Other (At most minimal pedal edema) - Neuro Neuro: Alert and oriented X 3 Results - Vitals Vitals: Vital Signs - 24 hr 09/21/23 09/21/23 09/21/23 11:46 11:48 12:22 Temperature 36.3 C L Heart Rate 60 64 60 Respiratory 32 H 21 Rate Blood Pressure 161/80 H 129/80 O2 Saturation 94 92 09/21/23 09/21/23 09/21/23 12:52 13:00 13:30 Temperature Heart Rate 61 66 62 Respiratory 20 25 H 20 Rate Blood Pressure 130/75 186/82 H 170/101 H O2 Saturation 91 L 90 L 92 09/21/23 13:46 Temperature Heart Rate 62 Respiratory 22 Rate Blood Pressure 158/83 H O2 Saturation 93 Oxygen O2 Source Room air - EKG (time done) 1204 EKG releavant findings:: EKG personally interpreted by author of this note. Relevant findings are: Rate: Rate (enter#) (60) Rhythm: NSR [place]: Normal Intervals: RBBB QRS: Normal Ischemia: Non specific changes. No: ST elevation c/w ischemia Computer interpretation: Agree with computer - Labs Labs: Laboratory Tests 09/21/23 09/21/23 09/21/23 11:56 11:56 11:56 WBC 11.4 H RBC 3.74 L Hgb 11.6 L Hct 35.9 L MCV 96.0 MCH 31.0 MCHC 32.3 RDW 13.1 Plt Count 282 MPV 8.9 Neut # (Auto) 6.7 H Lymph # (Auto) 3.4 [place]ander # (Auto) 1.0 Eos # (Auto) 0.3 Baso # (Auto) 0.1 Absolute Nucleated RBC 0.00 Nucleated RBC % 0.0 Sodium 126 L Potassium 4.5 Chloride 94 L Carbon Dioxide 21 Anion Gap 11.0 BUN 19 Creatinine 1.4 H Estimated GFR (MDRD) 35 L Glucose 169 H Calcium 9.6 Total Bilirubin 0.5 AST 30 ALT 25 Alkaline Phosphatase 70 Troponin I High Sens 18.4 H* B-Natriuretic Peptide 439 H Total Protein 8.2 Albumin 4.7 Globulin 3.5 Albumin/Globulin Ratio 1.3 Lipase 28 - Rads (name of study) 1v cxr -chf exac Relevant Findings:: Final report received, EMP independent interpretation of test PD Medical Decision Making - ED course ED course: 88-year-old woman presents with CHF exacerbation with significant hypertension. She was attended to immediately on arrival and she had been on CPAP for EMS and she was started on BiPAP with sublingual nitroglycerin followed by drip. With these interventions she became significantly improved and her respiratory effort is diminished significantly. Workup demonstrates a chest x-ray consistent with CHF exacerbation, she has a nonischemic EKG, mild leukocytosis and anemia on CBC, CMP showing moderate hyponatremia which is worse than her usual. She has a minimal elevation in her troponin which I think is inconsequential and not indicative of acute ischemia and an elevated BNP which is not unexpected. We were able to bring her off of the BiPAP and she was comfortable in bed. I had her get up and walk on pulse oximetry and she did drop to 88% at which time (a little after 1 PM) I offered and recommended admission to the hospital. Patient not wanting to stay s0 we will try to continue to manage her in the emergency department to get her good enough to go home. She was administered an SINGH inhibitor (lisinopril 20 mg p.o.). Subsequently though she had misunderstood, she thought I was referring to sending her to another hospital. When this was clarified she was amenable to admission here and the hospitalist was called at 1:45 PM. - Critical Care Time(min): 35 Time Includes: Direct patient care, Review records, Reassess patient, Document care, Coordinate care, Medical consult, Family consult for tx dec Data interpretation: Labs, Pulse ox Procedures included in critical care time: Peripheral IV Procedures excluded from critical care time: EKG Departure - Departure Disposition: [facility] DC/Xfer Clinical Impression: Congestive heart failure Qualifiers: Heart failure type: unspecified Heart failure chronicity: acute on chronic Qualified Code(s): I50.9 - Heart failure, unspecified Hypertension Qualifiers: Hypertension type: unspecified Qualified Code(s): I10 - Essential (primary) hypertension Condition: Serious
[2023-09-21] MEDS: NITROGLYCERIN SL 0.4 MG TABLET SL STA (11:55)
[2023-09-21] MEDS: NITROGLYCERIN 50 MG/250 ML 50 MG/250 ML BOTTLE IV STA (11:56)
[2023-09-21 12:04] LABS: BASOPHILS # (AUTO) 0.1 10^3/uL (0.0-0.1); BASOPHILS % (AUTO) 0.5 %; EOSINOPHILS # (AUTO) 0.3 10^3/uL (0.0-0.7); EOSINOPHILS % (AUTO) 2.5 %; HCT - HEMATOCRIT 35.9 % (37.0-47.0); HGB - HEMOGLOBIN 11.6 g/dL (12.0-16.0); LYMPHOCYTES # (AUTO) 3.4 10^3/uL (1.5-3.5); LYMPHOCYTES % (AUTO) 29.4 %; MEAN CORPUSCULAR HGB CONC 32.3 g/dL (32.0-36.0); MEAN PLATELET VOLUME 8.9 fL (7.9-10.8); MONOCYTES % (AUTO) 8.5 %; NEUTROPHILS # (AUTO) 6.7 10^3/uL (1.5-6.6); NEUTROPHILS % (AUTO) 58.8 %; PLT - PLATELET COUNT 282 10^3/uL (130-450); RED BLOOD COUNT 3.74 10^6/uL (4.20-5.40); RED CELL DISTRIBUTION WIDTH 13.1 % (12.0-15.0); WHITE BLOOD COUNT 11.4 x10^3/uL (4.8-10.8)
--- NOTE | 2023-09-21 12:23 | XRAY Report ---
PROCEDURE: Chest 1V INDICATIONS: dyspnea TECHNIQUE: One view of the chest was acquired. COMPARISON: 06/23/2022. FINDINGS: Surgical changes and devices: Pacemaker Lungs and pleura: No pleural effusions or pneumothorax. Interstitial pulmonary edema. Mediastinum: Mediastinal contours appear normal. Mild cardiomegaly. Bones and chest wall: No suspicious bony lesions. Overlying soft tissues appear unremarkable. IMPRESSION: Congestive heart failure exacerbation Reviewed by: Tito Quigley MD on 09/21/2023 12:21 PM PDT Approved by: Tito Quigley MD on 09/21/2023 12:21 PM PDT Station ID: [id number]
[2023-09-21 12:26] LABS: ALBUMIN 4.7 g/dL (3.2-5.5); ALBUMIN/GLOBULIN RATIO 1.3 (1.0-2.2); BILIRUBIN,TOTAL 0.5 mg/dL (0.2-1.0); CALCIUM 9.6 mg/dL (8.5-10.3); CREATININE 1.4 mg/dL (0.6-1.3); POTASSIUM 4.5 mmol/L (3.5-4.5); TOTAL PROTEIN 8.2 g/dL (6.4-8.9); TROPONIN I HIGH SENSITIVITY 18.4 ng/L (2.3-14.8)
[2023-09-21] MEDS: FUROSEMIDE 40 MG/4 ML VIAL IVP STA (12:30)
[2023-09-21] MEDS: lisinopriL 5 MG TABLET PO STA (13:27)
[2023-09-21] MEDS ORDERED: ONDANSETRON 4 MG/2 ML VIAL IVP PRN (14:17)
[2023-09-21] MEDS ORDERED: ONDANSETRON ODT 4 MG TABLET TL PRN (14:17)
[2023-09-21] MEDS ORDERED: SODIUM CHLORIDE FLUSH 0.9% 10 ML SYRINGE IVP PRN (14:17)
[2023-09-21] MEDS ORDERED: ACETAMINOPHEN 325 MG TABLET PO PRN (14:17)
--- NOTE | 2023-09-21 15:42 | HISTORY & PHYSICAL EXAMINATION ---
Chief Complaint - Chief Complaint Chief Complaint: Shortness of breath History of Present Illness - History of Present Illness HPI Comment/Other: Patient is an 88-year-old female with a past medical history of atrial fibrillation s/p PPM, Watchman device, CVA, hypertension, hyperlipidemia who presented to the ED due to complaints of shortness of breath. A chest x-ray was performed which revealed evidence of congestive heart failure. Patient also had elevated blood pressures and was given diagnosis of flash pulmonary edema and started on nitroglycerin infusion. Her initial troponin was mildly elevated to 18.4 and increased to 39.2. Patient did not have any anginal symptoms or chest pain. He EKG was nonischemic. During my evaluation patient denied any chest pain and stated that her shortness of breath improved significantly. Patient did not have any lower extremity edema or orthopnea. Her primary marine electronics repairer Dr. Kraus is at [place] and she is scheduled for a pacemaker interrogation tomorrow. I did offer her an ED to ED transfer however she preferred to stay locally even after being told that we do not have any cardiology at this hospital. Patient will be admitted to the ICU for management of her flash pulmonary edema. History - Past Medical History Cardiovascular: reports: Hypertension, High cholesterol Endocrine/Autoimmune: reports: Type 2 diabetes GI: reports: GERD Musculoskeletal: reports: Osteoarthritis MRSA Hx?: No - Past Surgical History General: reports: Cholecystectomy, Appendectomy Ortho: reports: Knee replacement /TREASURY ACCOUNTANT: reports: section - POLST Patient has POLST: No Meds/Allgy - Home Medications Home Medications: Ambulatory Orders Medication Instructions Recorded Confirmed Metformin HCl 1,000 mg PO BID 10/28/12 06/23/22 Simvastatin [Zocor] 10 mg PO QPM 10/28/12 06/23/22 Metoprolol Succinate [Toprol Xl] 12.5 mg PO DAILY PM 06/02/17 06/23/22 Furosemide [Lasix] 20 mg PO DAILY #5 tablet 03/11/20 06/23/22 Potassium Chloride 20 meq PO DAILY #5 tablet.er 03/11/20 06/23/22 Albuterol Sulf [Ventolin Hfa 1 - 2 puffs INH Q4HR PRN #1 each 04/12/22 06/23/22 Inhaler] Flecainide Acetate 50 mg PO BID 01/20/23 04/02/23 Apixaban [Eliquis] 5 mg PO BID 06/23/22 06/23/22 Famotidine 40 mg PO DAILY 06/23/22 06/23/22 Lidocaine Patch 5% [Lidoderm Patch] 1 patch TOP DAILY PRN #10 patch 07/21/22 oxyCODONE [Roxicodone] 2.5 - 5 mg PO Q6H PRN #14 tablet 02/26/23 MDD 6 - Allergies Allergies/Adverse Reactions: Allergies Allergy/AdvReac Type Severity Reaction Status Date / Time contrast dye Allergy Rash Uncoded 09/21/23 11:52 seasonal Allergy Unknown Uncoded 09/21/23 11:52 Review of Systems - Constitutional Constitutional: denies: Fatigue, Fever, Chills, Malaise - Cardiovascular Cariovascular: reports: Exertional dyspnea. denies: Irregular heart rate, Palpitations, Chest pain, Edema, Orthopnea - Respiratory Respiratory: denies: Cough, Sputum production, Wheezing, Snoring, Orthopnea - All Other Systems All Other Systems: reports: Reviewed and negative Exam - Vital Signs Vital Signs: Vital Signs x48h Temp Pulse Resp BP Pulse Ox 09/21/23 14:30 62 19 121/58 L 94 09/21/23 14:00 62 19 137/74 H 94 09/21/23 13:46 62 22 158/83 H 93 09/21/23 13:30 62 20 170/101 H 92 09/21/23 13:00 66 25 H 186/82 H 90 L 09/21/23 12:52 61 20 130/75 91 L 09/21/23 12:22 60 21 129/80 92 09/21/23 11:48 36.3 C L 64 32 H 161/80 H 94 09/21/23 11:46 60 - Physical Exam General Appearance: positive: No acute distress, Alert Respiratory: positive: Chest non-tender, No respiratory distress, Breath sounds nml Cardiovascular: positive: Regular rate & rhythm, No murmur, No gallop Abdomen: positive: Non-tender, No organomegaly, Nml bowel sounds Extremities: positive: Non-tender, No pedal edema Sepsis Event Note (H) - Evaluation Current Stage of Sepsis: Ruled out Conclusion/Plan - Problem List (1) Flash pulmonary edema Conclusion/Plan: --Appeared to present in flash pulmonary edema. Started on IV nitroglycerin and admitted to the ICU. --She has been given a dose of lisinopril. I will start her on Imdur 30 mg daily. --Will attempt to wean her off the nitroglycerin infusion throughout the day. Careful cardiac monitoring in the ICU. --TTE ordered, not available until tomorrow. (2) Elevated troponin Conclusion/Plan: --Continue to trend troponin every 6 hours. Patient is not having any chest pain. --I do not believe the etiology is ACS, therefore we will hold off on starting a heparin infusion. --Patient does not endorse any recent stress tests. Does not appear she has ever had a cardiac cath or stent placed. (3) Atrial fibrillation Conclusion/Plan: --Follows with Cardiology in [facility]. She is currently on Flecanaide 100 mg BID and metoprolol 12.5 mg daily. --Will hold her metoprolol 12.5 mg given her SCAPE. --Patient has a history of a PPM and Watchman device placement. Denies any prior history of bleeding events. (4) CVA (cerebral vascular accident) Conclusion/Plan: --Patient is on ASA 81 mg, statin at home. She has a Watchman device. (5) Hyperlipidemia Conclusion/Plan: --Continue home statin. (6) Hypertension Conclusion/Plan: --Continue to closely monitor BP as to not trigger SCAPE. Qualifiers: Hypertension type: unspecified Qualified Code(s): I10 - Essential (primary) hypertension - Lab Results Fish Bones: 09/21/23 11:56 09/21/23 11:56
[2023-09-21] MEDS: ISOSORBIDE MONONITRATE ER 30 MG TABLET PO SCH (15:58)
[2023-09-21] MEDS: NITROGLYCERIN 50 MG/250 ML 50 MG/250 ML BOTTLE IV SCH (16:49)
[2023-09-21] MEDS: SODIUM CHLORIDE FLUSH 0.9% 10 ML SYRINGE IVP SCH (17:00)
[2023-09-21] MEDS ORDERED: ZINC OXIDE 12% OINT 57 GM TUBE TOP PRN (20:37)
[2023-09-21] MEDS: INSULIN LISPRO 300 UNIT/3 ML PEN SUBQ SCH (21:01)
[2023-09-21] MEDS: FAMOTIDINE 20 MG/2 ML VIAL IVP SCH (21:13)
[2023-09-21] MEDS: FLECAINIDE 50 MG TABLET PO SCH (21:13)
[2023-09-21] MEDS: BENZOCAINE/MENTHOL LOZENGE MM PRN (23:03)
[2023-09-22 06:00] LABS: BASOPHILS # (AUTO) 0.1 10^3/uL (0.0-0.1); BASOPHILS % (AUTO) 0.9 %; EOSINOPHILS # (AUTO) 0.3 10^3/uL (0.0-0.7); EOSINOPHILS % (AUTO) 3.7 %; HCT - HEMATOCRIT 31.6 % (37.0-47.0); HGB - HEMOGLOBIN 10.3 g/dL (12.0-16.0); LYMPHOCYTES # (AUTO) 1.8 10^3/uL (1.5-3.5); MEAN CORPUSCULAR HEMOGLOBIN 30.8 pg (27.0-31.0); MEAN CORPUSCULAR HGB CONC 32.6 g/dL (32.0-36.0); MEAN CORPUSCULAR VOLUME 94.6 fL (81.0-99.0); MEAN PLATELET VOLUME 9.1 fL (7.9-10.8); MONOCYTES # (AUTO) 0.8 10^3/uL (0.0-1.0); MONOCYTES % (AUTO) 11.8 %; NEUTROPHILS % (AUTO) 57.5 %; PLT - PLATELET COUNT 236 10^3/uL (130-450); RED BLOOD COUNT 3.34 10^6/uL (4.20-5.40); RED CELL DISTRIBUTION WIDTH 13.1 % (12.0-15.0)
[2023-09-22 06:20] LABS: CALCIUM 9.2 mg/dL (8.5-10.3); CREATININE 1.2 mg/dL (0.6-1.3); POTASSIUM 3.9 mmol/L (3.5-4.5)
--- NOTE | 2023-09-22 08:31 | XRAY Report ---
PROCEDURE: Chest 1V INDICATIONS: CHF, interval evaluation TECHNIQUE: One view of the chest was acquired. COMPARISON: Chest x-ray 09/21/2023 FINDINGS: Surgical changes and devices: Pacemaker. Lungs and pleura: Persistent although decreased appearance of increased pulmonary vascularity compar ed to prior exam. There remains blunting of the costophrenic angles. Mediastinum: Mediastinal contours appear normal. Heart size is enlarged. Bones and chest wall: No suspicious bony lesions. Overlying soft tissues appear unremarkable. IMPRESSION: Persistent although less prominent appearance of increased vascularity suggestive of edema. Reviewed by: Monserrat King MD on 09/22/2023 8:30 AM PDT Approved by: Monserrat King MD on 09/22/2023 8:30 AM PDT Station ID: [id number]
[2023-09-22] MEDS: ENOXAPARIN 40 MG/0.4 ML SYRINGE SUBQ SCH (10:02)
--- NOTE | 2023-09-22 10:12 | PHARMACY PROGRESS NOTE ---
- Best Possible Medication History Admit Date and Time: 09/21/23 1417 Processed by: Pharmacy Medications reviewed in ED?: No Medication History completed: Yes Patient Interview: Completed Secondary Source(s): Written medication list, Insurance records As the person ultimately responsible for medication therapy, providers are able to order a medication from an existing home medication list in [facility] via the "Reconcile Routine" prior to Confirmation of that medication by software support engineer. Such practice is discouraged except when the physician, in their clinical judgment, deems that a medical need exists for a medication without regard to previous use.
--- NOTE | 2023-09-22 12:08 | Discharge Plan ---
Discharge Plan Problem Reviewed?: Yes Disposition: Home, Self Care Condition: Good Prescriptions: Isosorbide Mononitrate ER [Imdur] 30 mg PO DAILY #30 tab Diet: Cardiac Activity Restrictions: Activity as Tolerated Additional Instructions or Follow Up instructions: Please follow up with your Concrete Grinder Operator on Friday in [place]. I have added Imdur to your medication list. Keep a close eye on your blood pressure. No Smoking: If you smoke, Please STOP! Call for help.
--- NOTE | 2023-09-22 12:14 | DISCHARGE SUMMARY ---
Discharge Summary Admit Date: 09/21/23 Discharge Date: 09/22/23 Discharging Provider: Kina Cabral Code Status: Attempt Resuscitation Condition at Discharge: Good Discharge Disposition: 01 Home, Self Care - HPI History of Present Illness: Patient is an 88-year-old female with a past medical history of atrial fibrillation s/p PPM, Watchman device, CVA, hypertension, hyperlipidemia who presented to the ED due to complaints of shortness of breath. A chest x-ray was performed which revealed evidence of congestive heart failure. Patient also had elevated blood pressures and was given diagnosis of flash pulmonary edema and started on nitroglycerin infusion. Her initial troponin was mildly elevated to 18.4 and increased to 39.2. Patient did not have any anginal symptoms or chest pain. He EKG was nonischemic. During my evaluation patient denied any chest pain and stated that her shortness of breath improved significantly. Patient did not have any lower extremity edema or orthopnea. Her primary foreign broadcast specialist Dr. Kraus is at [place] and she is scheduled for a pacemaker interrogation tomorrow. I did offer her an ED to ED transfer however she preferred to stay locally even after being told that we do not have any cardiology at this hospital. Patient will be admitted to the ICU for management of her flash pulmonary edema. - HOSPITAL COURSE Hospital Course: Patient is an 88-year-old female who present to the ED due to severe sudden onset shortness of breath. She was noted to have flash pulmonary edema with a chest x-ray showing vascular congestion. Patient was placed on nitroglycerin drip and her symptoms improved quite significantly and rapidly. She was monitored in the ICU after being started on oral Imdur. Patient has a follow-up with her foreign broadcast specialist tomorrow. She will be discharged home on oral Imdur as she is at her baseline. Patient improved in a manner more rapid than anticipated. - ALLERGIES Allergies/Adverse Reactions: Allergies Allergy/AdvReac Type Severity Reaction Status Date / Time contrast dye Allergy Rash Uncoded 09/21/23 11:52 seasonal Allergy Unknown Uncoded 09/21/23 11:52 - MEDICATIONS Home Medications: Ambulatory Orders Medication Instructions Recorded Confirmed Metformin HCl 1,000 mg PO BID 10/28/12 09/22/23 Simvastatin [Zocor] 10 mg PO QPM 10/28/12 09/22/23 Metoprolol Succinate [Toprol Xl] 12.5 mg PO DAILY PM 06/02/17 09/22/23 Potassium Chloride 20 meq PO DAILY #5 tablet.er 03/11/20 09/22/23 Flecainide Acetate 100 mg PO BID 04/12/22 09/22/23 Famotidine 40 mg PO DAILY 06/23/22 09/22/23 Aspirin EC [Ecotrin] 81 mg PO DAILY 09/22/23 09/22/23 Fexofenadine [Rachel] 60 mg PO DAILY 09/22/23 09/22/23 Furosemide [Lasix] 40 mg PO DAILY 09/22/23 09/22/23 Glucosamine/D3/Boswellia Kelley 1 tab PO DAILY 09/22/23 09/22/23 [Osteo Bi-Flex Tablet] Isosorbide Mononitrate ER [Imdur] 30 mg PO DAILY #30 tab 09/22/23 [place]-3S/Dha/Epa/Fish Oil/D3 1 cap PO DAILY 09/22/23 09/22/23 [Btxpl-9-Ossm Oil-Vit D3 Sftgl] - PHYSICAL EXAM AT DISCHARGE General Appearance: positive: No acute distress, Alert Respiratory: positive: Chest non-tender, No respiratory distress, Breath sounds nml Cardiovascular: positive: Regular rate & rhythm, No murmur, No gallop Extremities: positive: Non-tender, Full ROM, No pedal edema Neurologic/Psychiatric: positive: Oriented x3, CN's nml (2-12) - LABS Result Diagrams: 09/22/23 05:18 09/22/23 05:18 - SEPSIS Current Stage of Sepsis: Ruled out - FOLLOW UP Follow Up: Patient to follow up with her Rug Cutter in [place] on 09/22. - TIME SPENT Time Spent in Discharge (Minutes): 30
[2023-09-22] MEDS: METOPROLOL SUCCINATE 25 MG TABLET PO SCH (13:00)
[2023-09-22] MEDS: FUROSEMIDE 20 MG TABLET PO SCH (13:00)
[2023-09-22 13:54] VITALS: BP 169/79; O2SAT 96
[2023-09-23] MEDS ORDERED: FAMOTIDINE 20 MG TABLET PO SCH (09:00)
== END 2023-09-22 14:25 | disposition home or self-care (01) | DRG 291 ==
LOC: EDUNIT# → ED 11:41 → ICU 14:17
PROVIDERS: ADMIT Family Medicine; ATTEND Family Medicine
DX: I11.0 Hypertensive heart disease with heart failure (principal); J81.0 Acute pulmonary edema; D72.829 Elevated white blood cell count, unspecified; I45.10 Unspecified right bundle-branch block; D64.9 Anemia, unspecified; E87.1 Hypo-osmolality and hyponatremia; I50.9 Heart failure, unspecified; R79.89 Other specified abnormal findings of blood chemistry; E78.00 Pure hypercholesterolemia, unspecified; E11.9 Type 2 diabetes mellitus without complications; M19.90 Unspecified osteoarthritis, unspecified site; K21.9 Gastro-esophageal reflux disease without esophagitis; I48.91 Unspecified atrial fibrillation; I27.20 Pulmonary hypertension, unspecified; I34.81 Nonrheumatic mitral (valve) annulus calcification; I35.8 Other nonrheumatic aortic valve disorders; Z79.01 Long term (current) use of anticoagulants; Z79.82 Long term (current) use of aspirin; Z79.84 Long term (current) use of oral hypoglycemic drugs; Z79.899 Other long term (current) drug therapy; Z86.73 Personal history of transient ischemic attack (TIA), and cerebral infarction without residual deficits; Z90.49 Acquired absence of other specified parts of digestive tract; Z91.041 Radiographic dye allergy status; Z95.0 Presence of cardiac pacemaker
CPT/HCPCS: 36415; 71045; 80048; 80053; 83690; 83880; 84484; 85025; 87150; 93005; 93307; 94660; 96374; 96375; 99291; A9270; J1650

== ENCOUNTER 2023-10-01 16:25 | Outpatient (CLI) | payer MEDICARE, MEDICAID ==
[2023-10-01 16:37] LABS: BASOPHILS % (AUTO) 0.6 %; EOSINOPHILS # (AUTO) 0.4 10^3/uL (0.0-0.7); EOSINOPHILS % (AUTO) 6.4 %; HCT - HEMATOCRIT 34.4 % (37.0-47.0); HGB - HEMOGLOBIN 11.5 g/dL (12.0-16.0); LYMPHOCYTES # (AUTO) 2.1 10^3/uL (1.5-3.5); LYMPHOCYTES % (AUTO) 31.4 %; MEAN CORPUSCULAR HEMOGLOBIN 31.6 pg (27.0-31.0); MEAN CORPUSCULAR HGB CONC 33.4 g/dL (32.0-36.0); MEAN CORPUSCULAR VOLUME 94.5 fL (81.0-99.0); MEAN PLATELET VOLUME 8.4 fL (7.9-10.8); MONOCYTES # (AUTO) 0.8 10^3/uL (0.0-1.0); MONOCYTES % (AUTO) 11.7 %; NEUTROPHILS # (AUTO) 3.3 10^3/uL (1.5-6.6); NEUTROPHILS % (AUTO) 49.8 %; PLT - PLATELET COUNT 328 10^3/uL (130-450); RED BLOOD COUNT 3.64 10^6/uL (4.20-5.40); RED CELL DISTRIBUTION WIDTH 12.5 % (12.0-15.0); WHITE BLOOD COUNT 6.7 x10^3/uL (4.8-10.8)
== END 2023-10-01 16:26 | disposition home or self-care (01) ==
LOC: LAB 16:25
PROVIDERS: ATTEND Physician Assistant Medical
DX: D64.9 Anemia, unspecified (principal)
CPT/HCPCS: 36415; 85025